=== PATIENT | female | born 1965 | race Caucasian/White ===

== ENCOUNTER 2023-05-14 07:58 | Outpatient (AMB) | payer OTHER, SELFPAY ==
--- NOTE | 2023-05-14 07:59 | A.OFFPC_ITS ---
Vital Signs 05/14/23 08:01 Height 5 ft 4 in Weight 162 lb BMI 27.8 BP 139/71 Blood Pressure Location Rt brachial Position Sitting Respiration 13 Pulse 97 Pulse Source Pulse Oximeter Temp 97.7 F Temp Source Temporal Artery Scan Pulse Oximetry (%) 97 Oxygen Delivery Method Room Air Intake Visit Reasons: Est Care/ HTN, Thyroid ok PER Kaydine Intake Note: Patient is here to establish care. Patient reports she has experienced hypertension. Patient brought medical history paper she wrote down for today's visit- Patient has a history of stroke 01/01/2010. Last colonoscopy was completed on 10/05/2015 at [facility]; on 06/30/2021 patient had 2 polyps removed; 1 was precancerous. Patients last mammogram was completed at [facility] on 11/30/2021. Pail Tester: Pap smear was completed on 05/23/2021; treated for uterine fibroids october of 2014. Mirena IUD inserted 06/06/2015 (for Fibroids). Ent Physician Required: No Accompanied by: Self / Same As Patient Allergies No Known Allergies Allergy (Verified 05/14/23 08:30) Medication List - Last Reconciled 05/14/23 by Kenyatta Branch, SKATING RINK MANAGER- aspirin 81 mg PO DAILY atorvastatin 80 mg PO DAILY calcium carbonate (Tums) 200 mg PO DAILY fluticasone propionate 50 mcg/actuation 1 spray intranasal DAILY levonorgestrel (Mirena) intrauterine levothyroxine 125 mcg PO DAILY lisinopril 10 mg PO DAILY loratadine (Claritin) 10 mg PO DAILY melatonin 3 mg PO BEDTIME PRN multivitamin 1 tab PO DAILY Tobacco use date assessed: 05/14/23 Dental Screening Dental Screen Date: 05/14/23 Did you have a dental visit in the last 12 months?: Yes Did you have a dental problem in the last 6 months where you did not have access to dental care?: No Was dental information given to patient?: Patient has dentist HPI HPI Comments History of Present Illness Details 58 y/o F with HTN, hypothyroid, uterine fibroids, CVA (2009), LELA, perimenopause Surgical hx: brain surgery 2009 Health Maintenance: colonoscopy 06/30/2021 + polyps repeat 5 years Mammo 11/30/22 [facility] Pap 06/02/21 [facility] DEXA Vaccines: UTD on flu, COVID, Shingles, Tdap today Specialists: G[employer] SET UP OPERATOR Optho *[facility] Dr Miller 90 days supply No medical records Coming Dr Kamaljit Rivas [facility] - retired 01/2023. [facility] HTN - on lisinopril, taking as directed. HLD - reports compliance w/ statin. Hypothyroid - tolerant and compliant with levothyroxine. CVA - in 2009. Not active w/ Neuro at this time. Reports poor short term memory. Unsure if this was there before. Has periods of fatigue and low energy. Mood - lots of anxiety. Newly after 30 years. This occurred 1 year ago. In counseling in the past. Declines current referral. No meds. Labs from today show normal electrolytes, normal renal function, normal blood sugar, normal LFTs, normal TSH PFSH Medical History (Updated 05/14/23 @ 15:30 by Kenyatta Branch, [facility]) Memory loss High cholesterol Fibroids Stroke Surgical History (Updated 05/14/23 @ 08:25 by Cyndie Correa [facility]) History of brain surgery Social History (Updated 05/14/23 @ 08:21 by Cyndie Correa [facility]) Household Members: None Housing: Condominium Are you a primary critical care technician to a significant other at home: No Do you presently have visiting nurse or other home services: No Alcohol intake: current Alcohol intake frequency: a few times a week Alcohol type: wine Patient Tobacco Use Status: Never used Tobacco e-Cigarette/Vaping Use: Never Used service: No Current occupational status: employed Current occupation: [employer] Sexual orientation: Unable to collect Gender identity: Unable to collect Cognitive needs: Yes (memory sometimes) Hearing needs: No Vision needs: No Questionnaire PHQ-9 Over the last 2 weeks, how often have you been bothered by any of the following problems? 1. Little interest or pleasure in doing things: not at all 2. Feeling down, depressed, or hopeless: not at all 3. Trouble falling or staying asleep, or sleeping too much: not at all 4. Feeling tired or having little energy: several days 5. Poor appetite or overeating: not at all 6. Feeling bad about yourself - or that you are a failure or have let yourself or your family down: not at all 7. Trouble concentrating on things, such as reading the newspaper or watching television: not at all 8. Moving or speaking so slowly that other people could have noticed. Or the opposite - being so fidgety or restless that you have been moving around a lot more than usual: not at all 9. Thoughts that you would be better off or of hurting yourself in some way: not at all Total score: 1 Depression Screening Interpretation: Negative Depression Screening Done: Yes 78063 - PHQ-9 Billing: Yes Source: Developed by Drs. Emmanuel Estrada, Chyna Mendoza, Ramiro Zuluaga and colleagues, with an educational kerry from [employer]. Thrive Questionnaire Date Thrive assessed: 05/14/23 I am a: Patient What is your living situation today?: I have a steady place to live Within the past 12 months, did the food you bought not last and you didn't have the money to get more?: Never true Within the past 12 months, did you worry whether your food would run out before you got money to buy more?: Never true Do you have trouble paying for medicines?: No Do you have trouble getting transportation to medical appointments?: No Do you have trouble paying your heating and electricity bill?: No Do you have trouble taking care of your child, family member or friend?: No Do you have trouble with day-to-day activities such as bathing, preparing meals, shopping, managing finances, etc.?: No Are you currently unemployed and looking for a job?: No Are you interested in more education?: No Please select the resources that you would like help with: None Currently or been in a relationship where the following occur: no concerns reported THRIVE Score: 0 AUDIT C Alcohol Use Questionnaire (AUDIT-C) 1. How often do you have a drink containing alcohol?: Never 2. How many drinks containing alcohol do you have on a typical day when you are drinking?: 3 or 4 3. How often do you have six or more drinks on one occasion?: Never Total Score: 1 Score Reviewed/Action Taken: Yes LELA-7 AMB Questionnaire LELA-7 Date LELA - 7 assessed: 05/14/23 Feeling nervous, anxious, or on edge: 1 = Several days Not being able to stop or control worryin = Several days Worrying too much about different things: 1 = Several days Trouble relaxin = Not at all Being so restless that it is hard to sit still: 0 = Not at all Becoming easily annoyed or irritable: 0 = Not at all Feeling afraid as if something awful might happen: 0 = Not at all Total LELA-7 score (0-4 normal; 5-9 mild; 10-14 moderate; 15-21 severe): 3 Source: Developed by Drs. Emmanuel Estrada, Chyna Mendoza, Ramiro Zuluaga and colleagues, with an educational kerry from [employer]. LELA-7 Assessment Billing LELA-7 Assessment Tool: LELA-7 Assessment 25408 Review of Systems Const All systems reviewed & are unremarkable except as noted in HPI and below Physical exam (Primary Care) Vital Signs: Last Vital Signs Temp 97.7 F 05/14/23 08:01 Pulse 97 05/14/23 08:01 Resp 13 05/14/23 08:01 BP 139/71 05/14/23 08:01 Pulse Ox 97 05/14/23 08:01 Oxygen Delivery Method Room Air 05/14/23 08:01 BMI result Body Mass Index 27.8 Tobacco/Smoking Status: Tobacco use Status Tobacco use date assessed 05/14/23 05/14/23 08:19 Patient Tobacco Use Status Never used Tobacco 05/14/23 08:21 e-Cigarette/Vaping Use Never Used 05/14/23 08:21 PHQ-9: PHQ-9 Score PHQ-9: Total score 1 05/14/23 11:21 Depression Screening Interpretation: Negative Thrive Assessment: Date of Thrive Assessment Date Thrive assessed 05/14/23 05/14/23 08:29 Currently or been in a relationship where the following occur: no concerns reported Const Other: awake alert scleras nonicteric bilat + carotid bruit bilat 2/6 systolic murmur, LSB, RRR Abd soft, nontender, no hepatomegaly LS CTAB no edema BLE, + PP Immunizations Boostrix Tdap 2.5 Lf unit-8 mcg-5 Lf/0.5 mL intramuscular syringe Performing Provider: ALYSON Padilla Performing Location: [facility] Administered by: Marii Barnes CMA on 05/14/23 09:19 Dose Route Admin Location Dispensed Lot Number Expiration Date [employer] Agent 0.5 mL IM Right Deltoid 0.5 mL [id number] 06/22/25 67720-328-13 [facility] VIS Given Date VIS Provided VIS Publication Date 05/14/23 Single Vaccine 20 Eligibility Eligibility Date Funding Source Not [facility] Eligible 05/14/23 Private Assessment and Plan Assessment & Plan (1) Hypothyroid: Comment: TSH 0.88 Plan: Cont levothyroxine 125 mcg QD. Code(s): E03.9 - Hypothyroidism, unspecified Qualifiers: Hypothyroidism type: acquired Qualified Code(s): E03.9 - Hypothyroidism, unspecified (2) Hypertension: Comment: on lisinopril 10 mg QD , BP at goal, cont. Code(s): I10 - Essential (primary) hypertension Qualifiers: Hypertension type: primary hypertension Qualified Code(s): I10 - Essential (primary) hypertension (3) Hyperlipidemia: Comment: on Atorvastatin 80 mg QD, cont. Code(s): E78.5 - Hyperlipidemia, unspecified Qualifiers: Hyperlipidemia type: mixed hyperlipidemia Qualified Code(s): E78.2 - Mixed hyperlipidemia (4) Hypersomnolence: Comment: will check sleep study Code(s): G47.10 - Hypersomnia, unspecified (5) Stroke: Comment: reports treated at [facility] in 2009. Records requested. on statin & ACEI. No deficits Code(s): I63.9 - Cerebral infarction, unspecified Qualifiers: CVA mechanism: unspecified Qualified Code(s): I63.9 - Cerebral infarction, unspecified (6) Mitral valve prolapse: Comment: Echo ordered. Code(s): I34.1 - Nonrheumatic mitral (valve) prolapse (7) Carotid artery bruit: Comment: Carotid US ordered. On Statin Code(s): R09.89 - Other specified symptoms and signs involving the circulatory and respiratory systems Qualifiers: Laterality: bilateral Qualified Code(s): R09.89 - Other specified symptoms and signs involving the circulatory and respiratory systems (8) LELA (generalized anxiety disorder): Comment: not on meds currently; never been on meds; in counseling in the past, not effective. feels she is managing fine at this time. Code(s): F41.1 - Generalized anxiety disorder Plan This note is constructed using voice recognition software. While every effort has been made to ensure accuracy in industrial hygiene technician, still errors may have been included Sometimes, these errors may affect the content or meaning of the given sentence . Total time spent caring for the patient today was 60 minutes. This includes time spent before the visit reviewing the chart, time spent during the visit, and time spent after the visit on documentation Orders: Orders Microalbumin, Random (w Creat) Today E03.9 - Hypothyroidism, unspecified, E78.5 - Hyperlipidemia, unspecified, I10 - Essential (primary) hypertension Comprehensive Met. Panel Today E03.9 - Hypothyroidism, unspecified, E78.5 - Hyperlipidemia, unspecified, I10 - Essential (primary) hypertension Vitamin D 1,25 dihydroxy Today E03.9 - Hypothyroidism, unspecified, E78.5 - Hyperlipidemia, unspecified, I10 - Essential (primary) hypertension LDL Cholesterol Direct Today E03.9 - Hypothyroidism, unspecified, E78.5 - Hyperlipidemia, unspecified, I10 - Essential (primary) hypertension TSH reflex Free T4 Today E03.9 - Hypothyroidism, unspecified, E78.5 - Hyperlipidemia, unspecified, I10 - Essential (primary) hypertension RT home sleep study Today G47.10 - Hypersomnia, unspecified, I63.9 - Cerebral infarction, unspecified CA echo transthoracic complete Today I34.1 - Nonrheumatic mitral (valve) prolapse US carotid duplex BI Today E78.5 - Hyperlipidemia, unspecified, I63.9 - Cerebral infarction, unspecified, R09.89 - Other specified symptoms and signs involving the circulatory and respiratory systems TDaP Immunization Today Z23 - Encounter for immunization Medications: New lisinopril 10 mg PO DAILY 90 tabs 1RF atorvastatin 80 mg PO DAILY 90 tabs 1RF Patient Instructions: [email or web address].[email or web address] RTO in 6 weeks to review echo, sleep study and carotid US, sooner PRN Coding Level of Care Code New Pt Level 5 (03342) Diagnoses Acquired hypothyroidism E03.9 Hypothyroidism type: acquired Primary hypertension I10 Hypertension type: primary hypertension Mixed hyperlipidemia E78.2 Hyperlipidemia type: mixed hyperlipidemia Hypersomnolence G47.10 Cerebrovascular accident (CVA), unspecified mechanism I63.9 CVA mechanism: unspecified Mitral valve prolapse I34.1 Bilateral carotid bruits R09.89 Laterality: bilateral LELA (generalized anxiety disorder) F41.1 Additional Codes LELA-7 Assessment Billing - LELA-7 Assessment Tool: LELA-7 Assessment 04765 ([id number])
[2023-05-14 08:01] VITALS: BP 139/71; PULSE 97; RESP 13; TEMP 36.5; O2SAT 97; BMI 27.8
== END 2023-05-14 09:17 | disposition home or self-care (01) ==
PROVIDERS: PCP Nurse Practitioner Family; Visit Provider Nurse Practitioner Family
DX: E03.9 Hypothyroidism, unspecified (principal); I10 Essential (primary) hypertension; E78.2 Mixed hyperlipidemia; Z23 Encounter for immunization; G47.10 Hypersomnia, unspecified; Z86.73 Personal history of transient ischemic attack (TIA), and cerebral infarction without residual deficits; I34.1 Nonrheumatic mitral (valve) prolapse; R09.89 Other specified symptoms and signs involving the circulatory and respiratory systems; F41.1 Generalized anxiety disorder
CPT/HCPCS: 90471; 90715; 99205

== ENCOUNTER 2023-05-14 09:18 | Outpatient (REF) | payer OTHER, SELFPAY ==
[2023-05-14 13:19] LABS: Anion Gap 13 (12-20); TSH reflex Free T4 0.88 uIU/mL (0.32-4.0)
[2023-05-14 13:24] LABS: Alanine Aminotransferase 21 U/L (0-31); Albumin Level 4.8 g/dL (3.5-5.0); Alkaline Phosphatase 72 U/L (39-117); Aspartate Amino Transferase 19 U/L (5-31); Bilirubin Total 0.5 mg/dL (0.0-1.0); Blood Urea Nitrogen 21 mg/dL (9-16); Calcium 9.8 mg/dL (8.4-10.2); Carbon Dioxide 25 mmol/L (22-29); Chloride 106 mmol/L (96-108); Estimated Glomerular Filt Rate > 60; Glucose Random 115 mg/dL (60-115); Potassium 4.3 mmol/L (3.3-5.1); Sodium 140 mmol/L (135-145); Total Protein 7.6 g/dL (6.5-8.0)
[2023-05-30 10:51] LABS: LDL Cholesterol Direct 126
[2023-05-30 10:52] LABS: Vit D (1,25-Dihydroxy) Total 37; Vitamin D (1,25 OH) D2 <8
[2023-05-30 10:53] LABS: VITAMIN D (1,25 OH) D3 37
== END 2023-05-14 09:19 | disposition home or self-care (01) ==
LOC: HO.WFDLDS 09:18
PROVIDERS: Visit Provider Nurse Practitioner Family
DX: E03.9 Hypothyroidism, unspecified (principal); I10 Essential (primary) hypertension; E78.5 Hyperlipidemia, unspecified
CPT/HCPCS: 36415; 80053; 82652; 83721; 84443

== ENCOUNTER 2023-05-17 09:27 | Outpatient (REF) | payer OTHER, SELFPAY ==
[2023-05-17 12:56] LABS: Creatinine Urine 37.13 mg/dL; Microalbumin Urine < 5.0 mg/L
== END 2023-05-17 09:28 | disposition home or self-care (01) ==
LOC: HO.WFDLDS 09:27
PROVIDERS: Visit Provider Nurse Practitioner Family
DX: E03.9 Hypothyroidism, unspecified (principal); I10 Essential (primary) hypertension; E78.5 Hyperlipidemia, unspecified
CPT/HCPCS: 82043; 82570

== ENCOUNTER 2023-05-20 13:47 | Outpatient (REF) | payer OTHER, SELFPAY ==
--- NOTE | ~2023-05-20 | US_ITS ---
EXAMINATION: US EXTRACRANIAL CAROTID DUPLEX, BILATERAL CLINICAL INFORMATION: Stroke COMPARISON: None available. TECHNIQUE: Real-time ultrasound and Doppler techniques (integrating B-mode 2-D vascular images, Doppler spectral analysis and color-flow Doppler imaging) were utilized to interrogate the extracranial carotid arteries, the vertebral arteries and proximal subclavian arteries bilaterally. The degree of stenosis is determined by criteria similar to NASCET. FINDINGS: Right Side: 1. There is mild atherosclerotic plaque seen in the bifurcation/proximal ICA region. 2. The common carotid artery PSV proximally is 153 cm/s and distally 118 cm/s. 3. The proximal internal carotid artery velocities are 88 cm/s systolic and 25.1 cm/s diastolic. 4. The proximal external carotid artery PSV is 164 cm/s. 5. The vertebral artery shows antegrade flow. 6. The subclavian artery waveforms are normal. Left Side: 1. There is mild atherosclerotic plaque seen in the bifurcation/proximal ICA region. 2. The common carotid artery PSV proximally is 146 cm/s and distally 101 cm/s. 3. The proximal internal carotid artery velocities are 90.4 cm/s systolic and 18.9 cm/s diastolic. 4. The proximal external carotid artery PSV is 113 cm/s. 5. The vertebral artery shows antegrade flow. 6. The subclavian artery waveforms are normal. US/US carotid duplex BI IMPRESSION: 1. RIGHT: Minimal, non-hemodynamically significant stenosis of the proximal right internal carotid artery corresponding to a 0-49% stenosis by velocity criteria. 2. LEFT: Minimal, non-hemodynamically significant stenosis of the proximal left internal carotid artery corresponding to a 0-49% stenosis by velocity criteria.
== END 2023-05-20 13:48 | disposition home or self-care (01) ==
LOC: HO.HMGCX 13:47
PROVIDERS: PCP Nurse Practitioner Family; Visit Provider Nurse Practitioner Family
DX: I63.9 Cerebral infarction, unspecified (principal); R09.89 Other specified symptoms and signs involving the circulatory and respiratory systems; E78.5 Hyperlipidemia, unspecified
CPT/HCPCS: 93880

== ENCOUNTER → 2023-06-06 12:45 | Outpatient (REF) | payer OTHER, SELFPAY ==
--- NOTE | 2023-06-06 12:48 | CA_ITS ---
Transthoracic Echocardiogram Patient (Last, First, Middle): Luanne Cheung, Gender: Female Date of : 1965 Age: 58 Procedure Date: 06/06/2023 Procedure Type: Transthoracic Echocardiogram Location: OP Height: 162.56 cm Weight: 70.76 kg BSA: 1.76 m2 Heart Rate: bpm BP: 140 / 90 mmHg Echo Technician: TO Referring MD: Kenyatta Branch [facility] Symptoms: I34.1 - Nonrheumatic mitral (valve) prolapse Study Quality: Fair ECG Rhythm: Sinus Conclusions: - The left ventricular systolic function is normal. The calculated ejection fraction is 66% by biplane method. - No obvious valvular pathology seen on this study. Findings Left Ventricle Normal left ventricular cavity size. There is normal left ventricular wall thickness. The left ventricular systolic function is normal. The calculated ejection fraction is 66% by biplane method. There is no evidence of regional wall motion abnormalities. Diastolic function is normal for age. LV peak GLS -19%. Right Ventricle Normal right ventricular cavity size and systolic function. Atria Both atria are normal in size. Aortic Valve There is a normal trileaflet aortic valve. There is no aortic valve stenosis. There is no aortic valve regurgitation. Mitral Valve The mitral valve appears normal. There is no mitral valve regurgitation. There is no mitral valve stenosis. Pulmonic Valve The pulmonic valve is likely normal. Tricuspid Valve Normal tricuspid valve structure. There is trace tricuspid valve regurgitation. There is no evidence of pulmonary hypertension. Great Vessels The asc aorta is normal in size. Venous The inferior vena cava is normal in size and collapses greater than 50% with inspiration. Pericardium/Pleural There is a trivial pericardial effusion. Prior Study Comparison No prior study available for comparison. Recommendations, Care & Conclusions No obvious valvular pathology seen on this study. Measurements 2D Linear Measurements IVSd: 0.69 0.6-0.9/0.6-1.0 cm LVIDd: 3.87 3.9-5.3/4.2-5.9 cm LVIDd Index: 2.20 2.4-3.2/2.2-3.1 cm/m2 LVIDs: 2.40 2.0-3.6 cm LVPWd: 0.72 0.7-1.1 cm LA Diam: 2.50 2.7-3.8/3.0-4.0 cm LAIDs Index: 1.42 1.5-2.3 cm/m2 LV Mass: 92.81 67-162/88-224 g LV Mass Index: 52.73 43-95/49-115 g/m2 LVOT Diam: 2.00 3.0+(-)1.3 cm 2D Systolic Function EF 4C: 65.30 >55% EF 2C: 66.80 >55% EF BiP: 65.90 >55% Mitral Valve MV Pk E: 0.54 MV PK A: 0.60 MV Decel Time: 260.00 E/A: 0.90 E'Lateral: 11.00 E'Medial: 6.96 E/E' Med: 7.80 E/E' Lat: 4.90 PHT: 76.00 MVA PHT: 2.89 Decel [place]: 2.08 Aortic Valve AoV Pk Gunner: 1.58 AoV Mn Gunner: 1.06 AoV VTI: 0.30 AoV Pk Grad: 10.00 Aov Mn Grad: 5.00 SAMANTHA Cont.VTI: 2.81 LVOT LVOT Pk Gunner: 1.36 LVOT Mn Gunner: 0.87 LVOT VTI: 0.26 LVOT Pk Grad: 7.00 LVOT Mn Grad: 4.00 LVOT Diam: 2.00 LVOT Area: 3.14 Diastolic Function MV Pk E: 0.54 MV Pk A: 0.60 E/A: 0.90 E'Medial: 6.96 E/E' Med: 7.80 E' Laterial: 11.00 E/E' Lat: 4.90 Right Ventricle TAPSE (mm): 26.50 TVS' Gunner: 12.60 Tricuspid Valve TR Pk Gunner: 1.86 TR Pk Grad: 14.00 RA Press: 3.00 RVSP: 17.00 Great Vessels Aorta Sinus of Valsalva: 2.75 2.0-3.5 cm Ao Asc: 3.00 2.1-3.4 cm Ao Arch: 2.40 Updated in Other Vendor System with Status of Final Andrew Nguyen MD electronically signed on 06/07/2023 11:59:13 AM with status of Final
== END ==
LOC: HO.CARD 12:45
PROVIDERS: PCP Nurse Practitioner Family; Visit Provider Nurse Practitioner Family
DX: I34.1 Nonrheumatic mitral (valve) prolapse (principal)
CPT/HCPCS: 93306; 93356

== ENCOUNTER → 2023-06-06 12:48 | Outpatient (BNV) | payer OTHER, SELFPAY | PROVIDERS: PCP Nurse Practitioner Family; Visit Provider Internal Medicine | DX: I34.1 Nonrheumatic mitral (valve) prolapse (principal) | CPT/HCPCS: 93306; 93356 ==

== ENCOUNTER → 2023-06-24 12:51 | Outpatient (REF) | payer OTHER, SELFPAY | LOC: HO.SL 12:51 | PROVIDERS: PCP Nurse Practitioner Family; Visit Provider Nurse Practitioner Family | DX: G47.10 Hypersomnia, unspecified (principal); R06.83 Snoring | CPT/HCPCS: 95806 ==

== ENCOUNTER → 2023-06-24 13:02 | Outpatient (BNV) | payer OTHER, SELFPAY | PROVIDERS: PCP Nurse Practitioner Family; Visit Provider Internal Medicine | DX: R06.83 Snoring (principal) | CPT/HCPCS: 95806 ==

== ENCOUNTER 2023-07-12 11:25 | Outpatient (AMB) | payer OTHER, SELFPAY ==
--- NOTE | 2023-07-12 11:32 | MHC.PC.OV ---
Vital Signs 07/12/23 11:33 Height 5 ft 4 in Weight 159 lb BMI 27.3 BP 126/84 Blood Pressure Location Rt brachial Position Sitting Respiration 14 Pulse 92 Pulse Source Pulse Oximeter Temp 98.4 F Temp Source Oral Pulse Oximetry (%) 99 Oxygen Delivery Method Room Air Intake Visit Reasons: 6 week follow up Intake Note: Six week follow up Allergies No Known Allergies Allergy (Verified 07/12/23 11:58) Medication List - Last Reconciled 07/12/23 by DU Padilla- aspirin 81 mg PO DAILY calcium carbonate (Tums) 200 mg PO DAILY escitalopram oxalate 5 mg PO DAILY fluticasone propionate 50 mcg/actuation 1 spray intranasal DAILY levonorgestrel (Mirena) intrauterine levothyroxine 125 mcg PO DAILY lisinopril 10 mg PO DAILY loratadine (Claritin) 10 mg PO DAILY melatonin 3 mg PO BEDTIME PRN multivitamin 1 tab PO DAILY rosuvastatin 40 mg PO DAILY Tobacco use date assessed: 05/14/23 Dental Screening Dental Screen Date: 05/14/23 HPI HPI Comments History of Present Illness Details 58 y/o F with HTN, hypothyroid, uterine fibroids, CVA (2009), LELA, perimenopause, HLD Surgical hx: brain surgery 2009 Family hx: youngest brother with Polycystic kidney disease Health Maintenance: colonoscopy 06/30/2021 + polyps repeat 5 years Mammo 11/30/22 [facility] Pap 06/02/21 [facility] DEXA Vaccines: UTD on flu, COVID, Shingles, Tdap 04/2023 Specialists: [facility] Here today for chronic disease management and follow up. The information below was reviewed with her today. Labs 05/14/2023 show normal lytes, BUN 21, creatinine 0.82, EGFR greater than 60, random glucose 115, normal LFTs, LDL 126, vitamin-D 37, TSH within normal limits, urine microalbumin creatinine ratio normal 05/20/2023 US/US carotid duplex BI IMPRESSION: 1. RIGHT: Minimal, non-hemodynamically significant stenosis of the proximal right internal carotid artery corresponding to a 0-49% stenosis by velocity criteria. 2. LEFT: Minimal, non-hemodynamically significant stenosis of the proximal left internal carotid artery corresponding to a 0-49% stenosis by velocity criteria. Echo 06/07/23 trace tricuspid valve regurgitation. The left ventricular systolic function is normal. The calculated ejection fraction is 66% by biplane method. - No obvious valvular pathology seen on this study. Sleep study 06/27/2023 negative for sleep apnea as total sleep time AHI 4.2, however during sleep and supine position AHI 7.3, snoring 39% of the sleep time, lowest O2 sat 83%, but O2 sat below 88% for only 1 minute which is not significant. The recommendation is for weight reduction position therapy Her LDL goal will be less than 70. She is currently maintained on atorvastatin 80 mg daily. As she has not at goal, we will discontinue the atorvastatin and start her on rosuvastatin 40 mg daily. We will repeat labs in about 6 weeks. No further follow up needed for the echocardiogram results or the ultrasound of the carotid artery results. In regards to the sleep study this was done to evaluate any risk related to her heart disease and stroke that she had in 2009. The sleep study is negative for obstructive sleep apnea. Discuss the findings and offered referral to sleep Medicine if interested, No interest in sleep med referral at this time. Will try to remain off back while sleeping. In regards to anxiety, she was not ready to start any medications at the last visit. However today she is ready to start medication. Has not been on medication in the past. Continues to have a good support system. We will start on escitalopram 5 mg p.o. daily. Return to office in 6 weeks to follow up on effects. [facility] Medical History (Updated 07/12/23 @ 12:20 by Kenyatta Branch [facility]) Hypersomnolence Memory loss High cholesterol Fibroids Stroke Surgical History (Updated 05/14/23 @ 08:25 by Cyndie Correa CMA) History of brain surgery Social History (Updated 05/14/23 @ 08:21 by Cyndie Correa CMA) Household Members: None Housing: Condominium Are you a primary transitional care nurse to a significant other at home: No Do you presently have visiting nurse or other home services: No 75 years or older and lives alone: No Alcohol intake: current Alcohol intake frequency: a few times a week Alcohol type: wine Patient Tobacco Use Status: Never used Tobacco e-Cigarette/Vaping Use: Never Used service: No Current occupational status: employed Current occupation: [employer] Sexual orientation: Unable to collect Gender identity: Unable to collect Cognitive needs: Yes (memory sometimes) Hearing needs: No Vision needs: No Questionnaire Thrive Questionnaire Date Thrive assessed: 05/14/23 LELA-7 AMB Questionnaire LELA-7 Date LELA - 7 assessed: 05/14/23 Source: Developed by Drs. Emmanuel Estrada, Chyna Mendoza, Ramiro Zuluaga and colleagues, with an educational kerry from [employer]. Review of Systems Const All systems reviewed & are unremarkable except as noted in HPI and below Physical exam (Primary Care) Vital Signs: Last Vital Signs Temp 98.4 F 07/12/23 11:33 Pulse 92 07/12/23 11:33 Resp 14 07/12/23 11:33 BP 126/84 07/12/23 11:33 Pulse Ox 99 07/12/23 11:33 Oxygen Delivery Method Room Air 07/12/23 11:33 BMI result Body Mass Index 27.3 Tobacco/Smoking Status: Tobacco use Status Tobacco use date assessed 05/14/23 07/12/23 11:34 Patient Tobacco Use Status Never used Tobacco 07/12/23 11:34 e-Cigarette/Vaping Use Never Used 07/12/23 11:34 Thrive Assessment: Date of Thrive Assessment Date Thrive assessed 05/14/23 07/12/23 11:34 Const Other: awake alert scleras nonicteric bilat + carotid bruit bilat 2/6 systolic murmur, LSB, RRR Abd soft, nontender, no hepatomegaly LS CTAB no edema BLE, + PP Assessment and Plan Assessment & Plan (1) Hypothyroid: Comment: TSH 0.88 Plan: Cont levothyroxine 125 mcg QD. Code(s): E03.9 - Hypothyroidism, unspecified Qualifiers: Hypothyroidism type: acquired Qualified Code(s): E03.9 - Hypothyroidism, unspecified (2) Hypertension: Comment: on lisinopril 10 mg QD , BP at goal, cont. Code(s): I10 - Essential (primary) hypertension Qualifiers: Hypertension type: primary hypertension Qualified Code(s): I10 - Essential (primary) hypertension (3) Hyperlipidemia: Comment: Her LDL goal will be less than 70. She is currently maintained on atorvastatin 80 mg daily. As she has not at goal, we will discontinue the atorvastatin and start her on rosuvastatin 40 mg daily. We will repeat labs in about 6 weeks. Code(s): E78.5 - Hyperlipidemia, unspecified Qualifiers: Hyperlipidemia type: mixed hyperlipidemia Qualified Code(s): E78.2 - Mixed hyperlipidemia (4) Tricuspid valve regurgitation: Comment: Trace, noted on echocardiogram 06/08/2023. No further imaging needed. Code(s): I07.1 - Rheumatic tricuspid insufficiency Qualifiers: Cardiac valve disease etiology: nonrheumatic Qualified Code(s): I36.1 - Nonrheumatic tricuspid (valve) insufficiency (5) LELA (generalized anxiety disorder): Comment: In regards to anxiety, she was not ready to start any medications at the last visit. However today she is ready to start medication. Has not been on medication in the past. Continues to have a good support system. We will start on escitalopram 5 mg p.o. daily. Return to office in 6 weeks to follow up on effects. Code(s): F41.1 - Generalized anxiety disorder (6) Carotid artery bruit: Comment: 05/2023 IMPRESSION: 1. RIGHT: Minimal, non-hemodynamically significant stenosis of the proximal right internal carotid artery corresponding to a 0-49% stenosis by velocity criteria. 2. LEFT: Minimal, non-hemodynamically significant stenosis of the proximal left internal carotid artery corresponding to a 0-49% stenosis by velocity criteria. Optimize medical management of chronic diseases. On a statin. On an NICOLE inhibitor. On baby aspirin. Code(s): R09.89 - Other specified symptoms and signs involving the circulatory and respiratory systems Qualifiers: Laterality: bilateral Qualified Code(s): R09.89 - Other specified symptoms and signs involving the circulatory and respiratory systems Plan: This note is constructed using voice recognition software. While every effort has been made to ensure accuracy in meat passer, still errors may have been included Sometimes, these errors may affect the content or meaning of the given sentence . Total time spent caring for the patient today was 45 minutes. This includes time spent before the visit reviewing the chart, time spent during the visit, and time spent after the visit on documentation Orders: Orders Comprehensive [employer]. Panel Fast 08/12/23 E03.9 - Hypothyroidism, unspecified, E78.2 - Mixed hyperlipidemia, I10 - Essential (primary) hypertension TSH reflex Free T4 08/12/23 E03.9 - Hypothyroidism, unspecified, E78.2 - Mixed hyperlipidemia, I10 - Essential (primary) hypertension Lipid Panel 08/12/23 E03.9 - Hypothyroidism, unspecified, E78.2 - Mixed hyperlipidemia, I10 - Essential (primary) hypertension Medications: New rosuvastatin 40 mg PO DAILY 90 tabs 1RF escitalopram oxalate 5 mg PO DAILY 30 tabs 1RF Discontinued atorvastatin Discontinued Reason: Doctor's Order 80 mg PO DAILY 90 tabs 1RF Patient Instructions: Return to office in 6 weeks. Please update your labs about a week before returning to this visit. We will follow up on the start of your escitalopram. Please return to the office sooner should you need anything. Coding Level of Care Code Est Pt Level 5 (63501) Diagnoses Acquired hypothyroidism E03.9 Hypothyroidism type: acquired Primary hypertension I10 Hypertension type: primary hypertension Mixed hyperlipidemia E78.2 Hyperlipidemia type: mixed hyperlipidemia Nonrheumatic tricuspid valve regurgitation I36.1 Cardiac valve disease etiology: nonrheumatic LELA (generalized anxiety disorder) F41.1 Bilateral carotid bruits R09.89 Laterality: bilateral
[2023-07-12 11:33] VITALS: BP 126/84; PULSE 92; RESP 14; TEMP 36.9; O2SAT 99; BMI 27.3
== END 2023-07-12 12:20 | disposition home or self-care (01) ==
PROVIDERS: PCP Nurse Practitioner Family; Visit Provider Nurse Practitioner Family
DX: E03.9 Hypothyroidism, unspecified (principal); I10 Essential (primary) hypertension; E78.2 Mixed hyperlipidemia; I36.1 Nonrheumatic tricuspid (valve) insufficiency; F41.1 Generalized anxiety disorder; R09.89 Other specified symptoms and signs involving the circulatory and respiratory systems
CPT/HCPCS: 99215

== ENCOUNTER 2023-08-30 08:27 | Outpatient (AMB) | payer OTHER, SELFPAY ==
--- NOTE | 2023-08-30 08:34 | MHC.PC.OV ---
Vital Signs 08/30/23 08:37 Height 5 ft 4 in Weight 161 lb 2 oz BMI 27.7 BP 110/78 Blood Pressure Location Rt brachial Position Sitting Pulse 70 Pulse Source Pulse Oximeter Pulse Oximetry (%) 99 Oxygen Delivery Method Room Air Intake Visit Reasons: 6 weeks w me FU labs and start lexapro Intake Note: Follow up Allergies No Known Allergies Allergy (Verified 08/30/23 09:01) Medication List - Last Reconciled 08/30/23 by KAIN PadillaP- aspirin 81 mg PO DAILY calcium carbonate (Tums) 200 mg PO DAILY escitalopram oxalate 5 mg PO DAILY fluticasone propionate 50 mcg/actuation 1 spray intranasal DAILY levonorgestrel (Mirena) intrauterine levothyroxine 125 mcg PO DAILY lisinopril 10 mg PO DAILY loratadine (Claritin) 10 mg PO DAILY melatonin 3 mg PO BEDTIME PRN multivitamin 1 tab PO DAILY rosuvastatin 40 mg PO DAILY Tobacco use date assessed: 05/14/23 Dental Screening Dental Screen Date: 05/14/23 HPI HPI Comments History of Present Illness Details Here today for 6 week follow up for generalized anxiety and hyperlipidemia. Since starting the escitalopram she admits that she feels a lot calmer. Taking at bedtime but wakes in the morning feeling groggy. Otherwise does not know any side effects. She is tried to move this earlier in the evening to see if this is helps the grogginess, only started this a few days ago so has not noticed any difference. Grinding her teeth at night. Does not have any TMJ pain, tooth pain or headaches. Tolerating compliant of the rosuvastatin 40 mg which was added to lower her LDL less than 70. She is fasting today and we will get her repeat labs done. Weight is stable awake alert scleras nonicteric bilat TMJ WNL bilat 2/6 systolic murmur, LSB, RRR LS CTAB Mood and affect appropriate Labs from today show normal electrolytes, normal renal function, fasting glucose 105, normal LFTs, total cholesterol 167, LDL 105, HDL 47, triglycerides 78, TSH 0.22 Plan At this time continue escitalopram 5 mg p.o. daily. Tried taking around noon time to see if this remedies the grogginess your feeling upon waking. If not we may need to consider change in the medication that you are on. A refill was sent today of the same dose. Follow up with dentist for tooth grinding, at home treatments such as mouth guard provided today. TSH low, dc levothyroxine 125mcg, start 100mcg QD, repeat labs in 6 weeks, ordered today LDL remains > 100 however improved. Cont rosuvastatin at same dose for now given the abnormal tsh, repeat labs in 6 weeks. Labs... LDL... ? cont same statin dose? RTO in September as scheduled, sooner prn. [facility] Medical History (Updated 09/02/23 @ 08:08 by Kenyatta Branch, [facility]) Hypersomnolence Memory loss High cholesterol Fibroids Stroke Surgical History (Updated 05/14/23 @ 08:25 by Cyndie Correa [facility]) History of brain surgery Social History (Updated 05/14/23 @ 08:21 by Cyndie Correa [facility]) Household Members: None Housing: Condominium Are you a primary hiv/aids care nurse to a significant other at home: No Do you presently have visiting nurse or other home services: No Alcohol intake: current Alcohol intake frequency: a few times a week Alcohol type: wine Patient Tobacco Use Status: Never used Tobacco e-Cigarette/Vaping Use: Never Used service: No Current occupational status: employed Current occupation: [employer] Sexual orientation: Unable to collect Gender identity: Unable to collect Cognitive needs: Yes (memory sometimes) Hearing needs: No Vision needs: No Questionnaire PHQ-9 Over the last 2 weeks, how often have you been bothered by any of the following problems? 1. Little interest or pleasure in doing things: not at all 2. Feeling down, depressed, or hopeless: not at all 3. Trouble falling or staying asleep, or sleeping too much: not at all 4. Feeling tired or having little energy: nearly every day 5. Poor appetite or overeating: not at all 6. Feeling bad about yourself - or that you are a failure or have let yourself or your family down: not at all 7. Trouble concentrating on things, such as reading the newspaper or watching television: several days 8. Moving or speaking so slowly that other people could have noticed. Or the opposite - being so fidgety or restless that you have been moving around a lot more than usual: not at all 9. Thoughts that you would be better off or of hurting yourself in some way: not at all Total score: 4 Depression Screening Interpretation: Positive Depression Screening Done: Yes Source: Developed by Drs. Emmanuel Estrada, Chyna Mendoza, Ramiro Zuluaga and colleagues, with an educational kerry from [employer]. Thrive Questionnaire Date Thrive assessed: 05/14/23 LELA-7 AMB Questionnaire LELA-7 Date LELA - 7 assessed: 05/14/23 Feeling nervous, anxious, or on edge: 0 = Not at all Not being able to stop or control worryin = Not at all Worrying too much about different things: 0 = Not at all Trouble relaxin = Not at all Being so restless that it is hard to sit still: 0 = Not at all Becoming easily annoyed or irritable: 0 = Not at all Feeling afraid as if something awful might happen: 0 = Not at all Total LELA-7 score (0-4 normal; 5-9 mild; 10-14 moderate; 15-21 severe): 0 Source: Developed by Drs. Emmanuel Estrada, Chyna Mendoza, Ramiro Zuluaga and colleagues, with an educational kerry from [employer]. LELA-7 Assessment Billing LELA-7 Assessment Tool: LELA-7 Assessment 77360 Physical exam (Primary Care) Vital Signs: Last Vital Signs Pulse 70 08/30/23 08:37 BP 110/78 08/30/23 08:37 Pulse Ox 99 08/30/23 08:37 Oxygen Delivery Method Room Air 08/30/23 08:37 BMI result Body Mass Index 27.7 Tobacco/Smoking Status: Tobacco use Status Tobacco use date assessed 05/14/23 08/30/23 08:36 Patient Tobacco Use Status Never used Tobacco 08/30/23 08:36 e-Cigarette/Vaping Use Never Used 08/30/23 08:36 PHQ-9: PHQ-9 Score PHQ-9: Total score 4 08/30/23 13:33 Depression Screening Interpretation: Positive Thrive Assessment: Date of Thrive Assessment Date Thrive assessed 05/14/23 08/30/23 08:36 Assessment and Plan Assessment & Plan (1) LELA (generalized anxiety disorder): Code(s): F41.1 - Generalized anxiety disorder (2) Hyperlipidemia: Comment: Her LDL goal will be less than 70. Code(s): E78.5 - Hyperlipidemia, unspecified Qualifiers: Hyperlipidemia type: mixed hyperlipidemia Qualified Code(s): E78.2 - Mixed hyperlipidemia (3) Hypothyroid: Code(s): E03.9 - Hypothyroidism, unspecified Qualifiers: Hypothyroidism type: acquired Qualified Code(s): E03.9 - Hypothyroidism, unspecified Plan This note is constructed using voice recognition software. While every effort has been made to ensure accuracy in planning rn, still errors may have been included Sometimes, these errors may affect the content or meaning of the given sentence . Total time spent caring for the patient today was 35 minutes. This includes time spent before the visit reviewing the chart, time spent during the visit, and time spent after the visit on documentation Medications: Refilled escitalopram oxalate 5 mg PO DAILY 30 tabs 1RF Discontinued levothyroxine Discontinued Reason: Doctor's Order 125 mcg PO DAILY 90 tabs 1RF Coding Level of Care Code Est Pt Level 4 (64206) Complex EM visit Add On G2211 Diagnoses LELA (generalized anxiety disorder) F41.1 Mixed hyperlipidemia E78.2 Hyperlipidemia type: mixed hyperlipidemia Acquired hypothyroidism E03.9 Hypothyroidism type: acquired Additional Codes LELA-7 Assessment Billing - LELA-7 Assessment Tool: LELA-7 Assessment [id number] ([id number])
[2023-08-30 08:37] VITALS: BP 110/78; PULSE 70; O2SAT 99; BMI 27.7
== END 2023-08-30 09:10 | disposition home or self-care (01) ==
PROVIDERS: PCP Nurse Practitioner Family; Visit Provider Nurse Practitioner Family
DX: E78.2 Mixed hyperlipidemia (principal); F41.1 Generalized anxiety disorder; E03.9 Hypothyroidism, unspecified
CPT/HCPCS: 99214

== ENCOUNTER 2023-08-30 09:14 | Outpatient (REF) | payer OTHER, SELFPAY ==
[2023-08-30 12:33] LABS: Alanine Aminotransferase 24 U/L (0-31); Albumin Level 4.6 g/dL (3.5-5.0); Alkaline Phosphatase 57 U/L (39-117); Anion Gap 12 (12-20); Aspartate Amino Transferase 19 U/L (5-31); Bilirubin Total 0.5 mg/dL (0.0-1.0); Blood Urea Nitrogen 16 mg/dL (9-16); Calcium 9.6 mg/dL (8.4-10.2); Carbon Dioxide 26 mmol/L (22-29); Chloride 105 mmol/L (96-108); Cholesterol 167 mg/dL (<200); Estimated Glomerular Filt Rate > 60; Glucose Fasting 105 mg/dL (60-99); HDL Cholesterol 47 mg/dL (>40); LDL Cholesterol Calculated 105 mg/dL (<100); Potassium 4.3 mmol/L (3.3-5.1); Sodium 139 mmol/L (135-145); Total Protein 7.3 g/dL (6.5-8.0); Triglycerides 78 mg/dL (<150)
[2023-08-30 12:38] LABS: TSH reflex Free T4 0.22 uIU/mL (0.32-4.0)
[2023-08-30 13:25] LABS: Free T4 (Free Thyroxine) 1.29 ng/dL (0.71-1.85)
== END 2023-08-30 09:15 | disposition home or self-care (01) ==
LOC: HO.WFDLDS 09:14
PROVIDERS: Visit Provider Nurse Practitioner Family
DX: E03.9 Hypothyroidism, unspecified (principal); E78.2 Mixed hyperlipidemia; I10 Essential (primary) hypertension
CPT/HCPCS: 36415; 80053; 80061; 84439; 84443

== ENCOUNTER 2023-11-06 08:40 | Outpatient (REF) | payer OTHER, SELFPAY ==
[2023-11-06 12:28] LABS: Cholesterol 175 mg/dL (<200); HDL Cholesterol 54 mg/dL (>40); LDL Cholesterol Calculated 97 mg/dL (<100); Triglycerides 121 mg/dL (<150)
[2023-11-06 12:48] LABS: TSH reflex Free T4 6.26 uIU/mL (0.32-4.0)
[2023-11-06 13:26] LABS: Free T4 (Free Thyroxine) 0.92 ng/dL (0.71-1.85)
== END 2023-11-06 08:41 | disposition home or self-care (01) ==
LOC: HO.WFDLDS 08:40
PROVIDERS: Visit Provider Nurse Practitioner Family
DX: E78.2 Mixed hyperlipidemia (principal); E03.9 Hypothyroidism, unspecified
CPT/HCPCS: 36415; 80061; 84439; 84443

== ENCOUNTER 2023-11-08 07:56 | Outpatient (AMB) | payer OTHER, SELFPAY ==
--- NOTE | 2023-11-08 08:00 | A.OFFPC_ITS ---
Vital Signs 11/08/23 08:05 Height 5 ft 4 in Weight 169 lb 6 oz BMI 29.1 BP 124/70 Blood Pressure Location Rt brachial Position Sitting Respiration 15 Pulse 92 Pulse Source Pulse Oximeter Pulse Oximetry (%) 98 Oxygen Delivery Method Room Air Intake Visit Reasons: Annual PE Intake Note: annual physical Allergies No Known Allergies Allergy (Verified 11/08/23 08:03) Medication List - Last Reconciled 11/08/23 by Kenyatta Branch, SPECIALIZED DEVELOPER- aspirin 81 mg PO DAILY calcium-vitamin D3-vitamin K 650 mg-12.5 mcg-40 mcg (Viactiv) tabs PO escitalopram oxalate 5 mg PO DAILY fluticasone propionate 50 mcg/actuation 1 spray intranasal DAILY levonorgestrel (Mirena) intrauterine levothyroxine 100 mcg PO DAILY lisinopril 10 mg PO DAILY loratadine (Claritin) 10 mg PO DAILY melatonin 3 mg PO BEDTIME PRN multivitamin 1 tab PO DAILY rosuvastatin 40 mg PO DAILY Tobacco use date assessed: 05/14/23 Dental Screening Dental Screen Date: 11/08/23 Did you have a dental visit in the last 12 months?: Yes Did you have a dental problem in the last 6 months where you did not have access to dental care?: No Was dental information given to patient?: Patient has dentist HPI HPI Comments History of Present Illness Details 58 y/o F with HTN, hypothyroid, uterine fibroids, CVA (2009), LELA, perimenopause Surgical hx: brain surgery 2009 Family hx: Mom kidney disease, Dad etoh abuse, smoker. Sisters & brothers all with anxiety, Sister with breast ca, non-genetic Health Maintenance: colonoscopy 06/30/2021 + polyps repeat 5 years Mammo 11/30/22 [facility] Pap 06/02/21 [facility] DEXA cont to have periods... 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 RIGHT: Minimal, non-hemodynamically s ignificant stenosis of the proximal right internal carotid artery corresponding to a 0-49% stenosis by velocity criteria. 2. LEFT: Minimal, non-hemodynamically si gnificant stenosis of the proximal left internal carotid artery corresponding to a 0-49% stenosis by velocity criteria. Echo 06/07/23 trace tricuspid valve regurgitation. The left ventricular systolic function is normal. The calculated ejection fraction is 66% by biplane method. - No obvious valvular pathology seen on this study. Sleep study 06/27/2023 negative for sleep apnea as total sleep time AHI 4.2, however during sleep and supine position AHI 7.3, snoring 39% of the sleep time, lowest O2 sat 83%, but O2 sat below 88% for only 1 minute which is not significant. The recommendation is for weight reduction position therapy Here today for CPE Labs from November 05 show a TSH of 6.26 and normal free T4, improved lipid profile with an LDL at 97 Eye: Last exam 1.5 years ago, wears glasses Endo: Feels very tired, admits to feeling very sx when thyroid is off. Has added Calcium supplement since. Mild wt gain.. scale here says about 8-9 however has only gained about 5 at home which is likely more accurrate than the reading today Cards: LDL improved even with abnormal TSH. Tolerant of statin. Mood: loves the escitalopram, helps the mood, cont to decline counseling. Walking, doing projects @ home, social, getting out. 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 Plan: STOP calcium supplment. Cont same levothyroxine dose and recheck labs in 6 weeks Check a1c for screening given elevated fasting glucose Continue all medications at the same dose Start ketoconazole for the tinea noted on your left abdomen, continue until clear Return to office in 4 months with fasting labs done 1 week before for routine follow up, sooner as needed This note is constructed using voice recognition software. While every effort has been made to ensure accuracy in grinder carbon plant, still errors may have been included Sometimes, these errors may affect the content or meaning of the given sentence . An additional 10 was spent addressing the problem(s) noted at todays visit. This includes time spent before the visit reviewing the chart, time spent during the visit, and time spent after the visit on documentation [facility] Medical History (Updated 11/08/23 @ 11:01 by Kenyatta Branch, [facility]-) Hypersomnolence Memory loss High cholesterol Fibroids Stroke Surgical History (Updated 10/29/23 @ 13:08 by Caitlin Hall) History of brain surgery Social History (System 10/29/23 @ 13:08 by Caitlin Hall) Household Members: None Housing: Condominium Are you a primary customer care representative to a significant other at home: No Do you presently have visiting nurse or other home services: No 75 years or older and lives alone: No Alcohol intake: current Alcohol intake frequency: a few times a week Alcohol type: wine Patient Tobacco Use Status: Never used Tobacco e-Cigarette/Vaping Use: Never Used service: No Current occupational status: employed Current occupation: [employer] Sexual orientation: Unable to collect Gender identity: Unable to collect Cognitive needs: Yes (memory sometimes) Hearing needs: No Vision needs: No Questionnaire PHQ-9 Over the last 2 weeks, how often have you been bothered by any of the following problems? 1. Little interest or pleasure in doing things: several days 2. Feeling down, depressed, or hopeless: not at all 3. Trouble falling or staying asleep, or sleeping too much: more than half the days 4. Feeling tired or having little energy: more than half the days 5. Poor appetite or overeating: not at all 6. Feeling bad about yourself - or that you are a failure or have let yourself or your family down: not at all 7. Trouble concentrating on things, such as reading the newspaper or watching television: not at all 8. Moving or speaking so slowly that other people could have noticed. Or the opposite - being so fidgety or restless that you have been moving around a lot more than usual: not at all 9. Thoughts that you would be better off or of hurting yourself in some way: not at all Total score: 5 Depression Screening Interpretation: Negative Depression Screening Done: Yes 33236 - PHQ-9 Billing: Yes Source: Developed by Drs. Emmanuel Estrada, Chyna Mendoza, Ramiro Zuluaga and colleagues, with an educational kerry from [employer]. Thrive Questionnaire Date Thrive assessed: 11/08/23 I am a: Patient What is your living situation today?: I have a steady place to live Within the past 12 months, did the food you bought not last and you didn't have the money to get more?: Never true Within the past 12 months, did you worry whether your food would run out before you got money to buy more?: Never true Do you have trouble paying for medicines?: No Do you have trouble getting transportation to medical appointments?: No Do you have trouble paying your heating and electricity bill?: No Do you have trouble taking care of your child, family member or friend?: No Do you have trouble with day-to-day activities such as bathing, preparing meals, shopping, managing finances, etc.?: No Are you currently unemployed and looking for a job?: No Are you interested in more education?: No Please select the resources that you would like help with: None THRIVE Score: 0 AUDIT C Alcohol Use Questionnaire (AUDIT-C) 2. How many drinks containing alcohol do you have on a typical day when you are drinking?: 1 or 2 3. How often do you have six or more drinks on one occasion?: Never Total Score: 0 Score Reviewed/Action Taken: Yes LELA-7 AMB Questionnaire LELA-7 Date LELA - 7 assessed: 11/08/23 Feeling nervous, anxious, or on edge: 0 = Not at all Not being able to stop or control worryin = Not at all Worrying too much about different things: 0 = Not at all Trouble relaxin = Not at all Being so restless that it is hard to sit still: 0 = Not at all Becoming easily annoyed or irritable: 0 = Not at all Feeling afraid as if something awful might happen: 0 = Not at all Total LELA-7 score (0-4 normal; 5-9 mild; 10-14 moderate; 15-21 severe): 0 Source: Developed by Drs. Emmanuel Estrada, Chyna Mendoza, Ramiro Zuluaga and colleagues, with an educational kerry from [employer]. LELA-7 Assessment Billing LELA-7 Assessment Tool: LELA-7 Assessment 66827 Review of Systems Const Details: Constitutional: Denies fever. Skin: Denies rash. Eye: Denies eye pain. ENMT: Denies sore throat and nasal congestion. Respiratory: Denies shortness of breath and cough. Gastrointestinal: Denies nausea, vomiting or abdominal pain. Cardiovascular: Denies chest pain and syncope. Genitourinary: Denies dysuria. Musculoskeletal: Denies back pain and extremity pain. Neurologic: Denies headaches, confusion, and weakness. Psychiatric: Denies suicidal thoughts and substance abuse. Allergy/ Immunologic: Denies impaired immunity. Physical exam (Primary Care) Vital Signs: Last Vital Signs Pulse 92 11/08/23 08:05 Resp 15 11/08/23 08:05 BP 124/70 11/08/23 08:05 Pulse Ox 98 11/08/23 08:05 Oxygen Delivery Method Room Air 11/08/23 08:05 BMI result Body Mass Index 29.1 BMI Assessment/Plan discussion: High BMI High, discussed plan: lifestyle Tobacco/Smoking Status: Tobacco use Status Tobacco use date assessed 05/14/23 11/08/23 08:02 Patient Tobacco Use Status Never used Tobacco 11/08/23 08:02 e-Cigarette/Vaping Use Never Used 11/08/23 08:02 PHQ-9: PHQ-9 Score PHQ-9: Total score 5 11/08/23 11:02 Depression Screening Interpretation: Negative Thrive Assessment: Date of Thrive Assessment Date Thrive assessed 11/08/23 11/08/23 08:12 Advance Care Planning discussion: Exists, not on file Date of discussion: 11/08/23 Forms completed: Health Care Proxy and MOLST Time spent: 1-15 minutes, not on file Const Other: General: Well developed, well nourished, in no acute distress. Appears stated age. Head: Normocephalic, atraumatic. Eyes: Pupils are equal, round and reactive to light and accommodation. Conjunctivae are clear. Vision grossly normal. Ears: TMs clear AU, EACS WNL Nose: Patent, without discharge. Mouth: There are no ulcers or lesions noted. No inflammation, no post nasal drip, no plaques nor exudates. Neck: Supple, no adenopathy or thyromegaly. Lungs: Clear to auscultation bilaterally. No rales, rhonchi or wheeze noted. Good air flow in all marks. Heart: Regular rate and rhythm. No click, rubs or gallops are noted. 2/6 systolic murmur LSB Abdomen: Bowel sounds present in all quadrants. The abdomen is soft, nontender, with no masses or organomegaly noted. No hernias are noted. Musculoskeletal: Joints are nontender, without swelling, redness, or effusions. Range of motion is observed to be normal. Pulses: Peripheral pulses are equal and palpable bilaterally. Extremities: No clubbing, cyanosis nor edema is noted. Neurologic: Gait and station normal. Cranial Nerves 2-12 intact. Motor strength grossly symmetrical and intact. No sensory loss. Balance normal. Skin: No ulcers, or lesions noted. Turgor is good. Skin color is good. Hair and nails are without abnormalities. Tinea corporis below breast on left Psych: Normal eye contact, affect and mood appropriate, and normal interactions. Patient is alert and appropriate to context. Tearful when talking about her progress happy tears Assessment and Plan Assessment & Plan (1) Encounter for general adult medical examination with abnormal findings: Code(s): Z00.01 - Encounter for general adult medical examination with abnormal findings (2) Hypothyroid: Code(s): E03.9 - Hypothyroidism, unspecified Qualifiers: Hypothyroidism type: acquired Qualified Code(s): E03.9 - Hypothyroidism, unspecified (3) Hyperlipidemia: Comment: Her LDL goal will be less than 70. Code(s): E78.5 - Hyperlipidemia, unspecified Qualifiers: Hyperlipidemia type: mixed hyperlipidemia Qualified Code(s): E78.2 - Mixed hyperlipidemia (4) Tricuspid valve regurgitation: Comment: Trace, noted on echocardiogram 06/08/2023. No further imaging needed. Code(s): I07.1 - Rheumatic tricuspid insufficiency Qualifiers: Cardiac valve disease etiology: nonrheumatic Qualified Code(s): I36.1 - Nonrheumatic tricuspid (valve) insufficiency (5) LELA (generalized anxiety disorder): Code(s): F41.1 - Generalized anxiety disorder (6) Carotid artery bruit: Comment: 05/2023 IMPRESSION: 1. RIGHT: Minimal, non-hemodynamically significant stenosis of the proximal right internal carotid artery corresponding to a 0-49% stenosis by velocity criteria. 2. LEFT: Minimal, non-hemodynamically significant stenosis of the proximal left internal carotid artery corresponding to a 0-49% stenosis by velocity criteria. Optimize medical management of chronic diseases. On a statin. On an NICOLE inhibitor. On baby aspirin. Code(s): R09.89 - Other specified symptoms and signs involving the circulatory and respiratory systems Qualifiers: Laterality: bilateral Qualified Code(s): R09.89 - Other specified symptoms and signs involving the circulatory and respiratory systems (7) Hypersomnolence: Comment: Sleep study for 2023- for obstructive sleep apnea. Code(s): G47.10 - Hypersomnia, unspecified (8) Stroke: Comment: reports treated at [facility] in 2009. Records requested. on statin & ACEI. No deficits Code(s): I63.9 - Cerebral infarction, unspecified Qualifiers: CVA mechanism: unspecified Qualified Code(s): I63.9 - Cerebral infarction, unspecified (9) Hypertension: Comment: on lisinopril 10 mg QD , BP at goal, cont. Code(s): I10 - Essential (primary) hypertension Qualifiers: Hypertension type: primary hypertension Qualified Code(s): I10 - Essential (primary) hypertension (10) ACP (advance care planning): Code(s): Z71.89 - Other specified counseling (11) Overweight (BMI 25.0-29.9): Code(s): E66.3 - Overweight (12) Tinea corporis: Code(s): B35.4 - Tinea corporis Orders: Orders Hemoglobin A1c 12/08/23 E03.9 - Hypothyroidism, unspecified, E78.2 - Mixed hyperlipidemia TSH reflex Free T4 12/08/23 E03.9 - Hypothyroidism, unspecified, E78.2 - Mixed hyperlipidemia Medications: New ketoconazole 2% 1 appl topical BID 60 grams 1RF Patient Instructions: Health screenings for women You should visit your health care provider from time to time, even if you are healthy. The purpose of these visits is to: Screen for medical issues Assess your risk for future medical problems Encourage a healthy lifestyle Update vaccinations and other preventive care services Help you get to know your provider in case of an illness Information Even if you feel fine, you should still see your provider for regular checkups. These visits can help you avoid problems in the future. For example, the only way to find out if you have high blood pressure is to have it checked regularly. High blood sugar and high cholesterol levels also may not have any symptoms in the early stages. A simple blood test can check for these conditions. There are specific times when you should see your provider or receive specific health screenings. The [place] Preventive Services Task Force publishes a list of recommended screenings. Below are screening guidelines for women ages 18 to 39. BLOOD PRESSURE SCREENING Your blood pressure should be checked at least once every 3 to 5 years if: Your blood pressure is in the normal range (top number less than 120 mm Hg and bottom number less than 80 mm Hg) You don't have risk factors for high blood pressure Ask your provider if you need your blood pressure checked more often if: The top number is 120 to 129 mm Hg or the bottom number is 70 to 79 mm Hg You have diabetes, heart disease, kidney problems, are overweight, or have certain other health conditions You have a first-degree relative with high blood pressure You are Black You had high blood pressure during a If the top number is 130 mm Hg or greater or the bottom number is 80 mm Hg or greater, this is considered stage 1 hypertension. Schedule an appointment with your provider to learn how you can reduce your blood pressure. Watch for blood pressure screenings in your area. Ask your provider if you can stop in to have your blood pressure checked. BREAST CANCER SCREENING Experts do not agree about the benefits of breast self-exams in finding breast cancer or saving lives. Talk to your provider about what is best for you. A screening mammogram is not recommended for most women under age 40. Your provider may discuss and recommend mammograms, MRI scans, or ultrasounds if you have an increased risk for breast cancer, such as: A mother or sister who had breast cancer at a young age (most often starting screening earlier than the age the close relative was diagnosed) You carry a high-risk genetic marker CERVICAL CANCER SCREENING Cervical cancer screening should start at age 21 years unless your provider advises otherwise. After the first test: Women ages 21 through 29 should have a Pap test every 3 years. Exoprts do not agree on whether HPV testing is recommended for this age group. Women ages 30 through 65 should be screened with either a Pap test every 3 years or the HPV test every 5 years or both tests every 5 years (called cotesting ). Women who have been treated for precancer (cervical dysplasia) should continue to have Pap tests for 20 years after treatment or until age 65, whichever is longer. If you have had your uterus and cervix removed (total hysterectomy), and you have not been diagnosed with cervical cancer or precancer (high grade cervical neoplasia), you do not need cervical cancer screening. CHOLESTEROL SCREENING Cholesterol screening should begin at: Age 45 for women with no known risk factors for coronary heart disease Age 20 for women with known risk factors for coronary heart disease Repeat cholesterol screening should take place: Every 5 years for women with normal cholesterol levels More often if changes occur in lifestyle (including weight gain and diet) More often if you have diabetes, heart disease, kidney problems, or certain other conditions DIABETES SCREENING You should be screened for diabetes starting at age 35 and then repeated every 3 years if you have no risk factors for diabetes. Screening may need to start earlier and be repeated more often if you have other risk factors for diabetes, such as: You have a first degree relative with diabetes. You are overweight or have obesity. You have high blood pressure, prediabetes, or a history of heart disease. Screening for diabetes should be done if you are planning to become and you are overweight and have other risk factors such as high blood pressure. DENTAL EXAM Go to the dentist once or twice every year for an exam and cleaning. Your dentist will evaluate if you need more frequent visits. EYE EXAM Have an eye exam every 5 to 10 years before age 40. If you have vision problems, have an eye exam every 2 years or more often if recommended by your provider. You should have an eye exam that includes an examination of your retina (back of your eye) at least every year if you have diabetes. IMMUNIZATIONS Commonly needed vaccines include: Flu shot: get one every year. COVID-19 vaccine: ask your provider what is best for you. Tetanus-diphtheria and acellular pertussis (Tdap) vaccine: have one at or after age 19 as one of your tetanus-diphtheria vaccines if you did not receive it as an adolescent. Tetanus-diphtheria: have a booster (or Tdap) every 10 years. Varicella vaccine: receive 2 doses if you never had chickenpox or the varicella vaccine. Hepatitis B vaccine: receive 2, 3, or 4 doses, depending on your exact circumstances. Measles, mumps, and rubella (MMR) vaccine: receive 1 to 2 doses if you are not already immune to MMR. Your provider can tell you if you are immune. Ask your provider about the human papillomavirus (HPV) vaccine if: You have not received the HPV vaccine in the past You have not completed the full vaccine series (you should catch up on this shot) Ask your provider if you should receive other immunizations if you have certain health problems that increase your risk for some diseases such as pneumonia. INFECTIOUS DISEASE SCREENING Women who are sexually active should be screened for chlamydia and gonorrhea up until age 25. Women 25 years and older should be screened for chlamydia and gonorrhea if at high risk. Screening for hepatitis C: All adults ages 18 to 79 should get a one-time test for hepatitis C. people should be screened at every . Screening for human immunodeficiency virus (HIV): All people ages 15 to 65 should get a one-time test for HIV. Depending on your lifestyle and medical history, you may also need to be screened for infections such as syphilis and HIV, as well as other infections. PHYSICAL EXAM All adults should visit their provider from time to time, even if they are healthy. The purpose of these visits is to: Screen for disease Assess your risk of future medical problems Encourage a healthy lifestyle Update your vaccinations and other preventive care services Maintain a relationship with a provider in case of an illness Your height, weight, and BMI should be checked at every exam. During your exam, your provider may ask you about: Depression and anxiety Diet and exercise Alcohol and tobacco use Safety issues, such as using seat belts, smoke detectors, and intimate partner violence Your medicines and risk for interactions SKIN SELF-EXAM Your provider may check your skin for signs of skin cancer, especially if you're at high risk, such as if you: Have had skin cancer before Have close relatives with skin cancer Have a weakened immune system OTHER SCREENING Talk with your provider about colon cancer screening if you have a strong family history of colon cancer or polyps, or if you have had inflammatory bowel disease or polyps yourself. Routine bone density screening of women under 40 is not recommended. Coding Level of Care Code Est Pt Level 2 (35107) Est Pt Prev Care 40-64y(28651) Diagnoses Encounter for general adult medical examination with abnormal findings Z00.01 Acquired hypothyroidism E03.9 Hypothyroidism type: acquired Mixed hyperlipidemia E78.2 Hyperlipidemia type: mixed hyperlipidemia Nonrheumatic tricuspid valve regurgitation I36.1 Cardiac valve disease etiology: nonrheumatic LELA (generalized anxiety disorder) F41.1 Bilateral carotid bruits R09.89 Laterality: bilateral Hypersomnolence G47.10 Cerebrovascular accident (CVA), unspecified mechanism I63.9 CVA mechanism: unspecified Primary hypertension I10 Hypertension type: primary hypertension ACP (advance care planning) Z71.89 Overweight (BMI 25.0-29.9) E66.3 Tinea corporis B35.4 Additional Codes LELA-7 Assessment Billing - LELA-7 Assessment Tool: LELA-7 Assessment [id number] ([id number]) Vital Signs *Quality* - Advance Care Planning discussion: Exists, not on file ([id number]) Vital Signs *Quality* - Time spent: 1-15 minutes, not on file ([id number])
[2023-11-08 08:05] VITALS: BP 124/70; PULSE 92; RESP 15; O2SAT 98; BMI 29.1
== END 2023-11-08 08:53 | disposition home or self-care (01) ==
PROVIDERS: PCP Nurse Practitioner Family; Visit Provider Nurse Practitioner Family
DX: Z00.00 Encounter for general adult medical examination without abnormal findings (principal); I36.1 Nonrheumatic tricuspid (valve) insufficiency; B35.4 Tinea corporis; I63.9 Cerebral infarction, unspecified; E03.9 Hypothyroidism, unspecified; E78.2 Mixed hyperlipidemia; F41.1 Generalized anxiety disorder; R09.89 Other specified symptoms and signs involving the circulatory and respiratory systems; G47.10 Hypersomnia, unspecified; I10 Essential (primary) hypertension; Z71.89 Other specified counseling; E66.3 Overweight

== ENCOUNTER → 2023-11-08 07:56 | Outpatient (BNVA) | payer OTHER, SELFPAY | PROVIDERS: PCP Nurse Practitioner Family; Visit Provider Nurse Practitioner Family | DX: Z00.01 Encounter for general adult medical examination with abnormal findings (principal); E03.9 Hypothyroidism, unspecified; E78.2 Mixed hyperlipidemia; I36.1 Nonrheumatic tricuspid (valve) insufficiency; F41.1 Generalized anxiety disorder; I65.23 Occlusion and stenosis of bilateral carotid arteries; G47.10 Hypersomnia, unspecified; I10 Essential (primary) hypertension; B35.4 Tinea corporis; E66.3 Overweight; Z68.29 Body mass index [BMI] 29.0-29.9, adult; Z86.73 Personal history of transient ischemic attack (TIA), and cerebral infarction without residual deficits; Z79.899 Other long term (current) drug therapy; Z71.89 Other specified counseling | CPT/HCPCS: 96127 ==

== ENCOUNTER 2024-01-03 13:08 | Outpatient (REF) | payer OTHER, SELFPAY ==
[2024-01-03 16:15] LABS: Estimated Average Glucose 114 mg/dL; Hemoglobin A1C 138.1807 umol/L; Hemoglobin A1c % 5.6 % (<6.0); Total Hemoglobin (HGBA1C) 3681.5946 umol/L
[2024-01-03 16:37] LABS: TSH reflex Free T4 1.96 uIU/mL (0.32-4.0)
== END 2024-01-03 13:09 | disposition home or self-care (01) ==
LOC: HO.HMGCLDS 13:08
PROVIDERS: PCP Nurse Practitioner Family; Visit Provider Nurse Practitioner Family
DX: E78.2 Mixed hyperlipidemia (principal); E03.9 Hypothyroidism, unspecified; Z13.1 Encounter for screening for diabetes mellitus
CPT/HCPCS: 36415; 83036; 84443

== ENCOUNTER 2024-03-09 08:15 | Outpatient (AMB) | payer OTHER, SELFPAY ==
--- NOTE | 2024-03-09 08:16 | A.OFFPC_ITS ---
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 Allergies No Known Allergies Allergy (Verified 03/09/24 09:06) Medication List - Last Reconciled 03/09/24 by DU Padilla- aspirin 81 mg PO DAILY escitalopram oxalate 5 mg PO DAILY fluticasone propionate 50 mcg/actuation 1 spray intranasal DAILY ketoconazole 2% 1 appl topical BID levonorgestrel (Mirena) intrauterine levothyroxine 100 mcg PO DAILY lisinopril 10 mg PO DAILY loratadine (Claritin) 10 mg PO DAILY melatonin 3 mg PO BEDTIME PRN multivitamin 1 tab PO DAILY rosuvastatin 40 mg PO DAILY Tobacco use date assessed: 05/14/23 Dental Screening Dental Screen Date: 11/08/23 HPI HPI Comments History of Present Illness Details 58 y/o F with HTN, hypothyroid, uterine fibroids, CVA (2009), LELA, perimenopause Social: getting divorce - work in progress Surgical hx: brain surgery 2009 Health Maintenance: colonoscopy 06/30/2021 + polyps repeat 5 years Mammo 11/30/22 [facility], has order needs to schedule Pap 06/02/21 [facility] DEXA has order needs to schedule Vaccines: UTD on flu, COVID, Shingles, Tdap 04/2023 Specialists: [facility] Op[facility]o 04/2023 urine microalb/cr WNL, LDL 126, V it d WNL 05/20/2023 US/US carotid duplex BI IMPRESSION: 1. RIGHT: Minimal, non-hemodynamically s ignificant stenosis of the proximal right internal carotid artery corresponding to a 0-49% stenosis by velocity criteria. 2. LEFT: Minimal, non-hemodynamically si gnificant stenosis of the proximal left internal carotid artery corresponding to a 0-49% stenosis by velocity criteria. Echo 06/07/23 trace tricuspid valve regurgitation. The left ventricular systolic function is normal. The calculated ejection fraction is 66% by biplane method. - No obvious valvular pathology seen on this study. Sleep study 06/27/2023 negative for sleep apnea as total sleep time AHI 4.2, however during sleep and supine position AHI 7.3, snoring 39% of the sleep time, lowest O2 sat 83%, but O2 sat below 88% for only 1 minute which is not significant. The recommendation is for weight reduction position therapy Labs from November 05 show a TSH of 6.26 and normal free T4, improved lipid profile with an LDL at 97 The patient is a 58-year-old female presenting with a routine follow-up for chronic conditions which includes essential hypertension, hypothyroidism, anxiety, and glossodynia. The patient reported feeling a significant improvement in anxiety management, feeling calmer, and sleeping well. She engages in yoga and walks even during winter. The patient also acknowledged stress associated with matters pertaining to her previous divorce, though she is receiving appropriate support. The patient has hypertension which is managed with lisinopril 10 mg, and her hypothyroidism is controlled with levothyroxine 100 mcg. Regarding her medications, she mentioned adherence to her current regimen, including daily aspirin, escitalopram 5 mg, and rosuvastatin 40 mg. Recently, the patient noticed sores on the sides of her tongue with a tingling sensation, db to having consumed something excessively hot. These symptoms resolved initially with additional oral hygiene but recurred recently. She has switched back to her regular toothpaste after a brief change, with no use of additional oral products like lozenges. Additionally, she reported a fall during walking that resulted in bruising on her left hip due to an unnoticed curb, but without hitting her head. The bruises have since resolved. - Nutrition and Sleep: Sleeping well wit h no recent use of melatonin; switched to herbal tea at bedtime. Exam awake alert scleras nonicteric bilat Thyroid nontender, trachea midline faint carotid bruit bilat tongue with denuded area on the ride side, no blisters, pharynx clear 2/6 systolic murmur, LSB, RRR Abd soft, nontender LS CTAB No edema BLE Mood and affect appropriate Discussion Notes During the visit, we discussed maintaining the current medication regimen for managing hypertension, hypothyroidism, and anxiety. I confirmed that the dosages remain appropriate, with refills provided. We addressed her tongue symptoms, with recommendations for potential use of a mouth guard if bruxism is suspected. I offered advice on her safety during walks, suggesting traction aids for enhanced stability on snow. We acknowledged her proactive management of anxiety through yoga and a supportive setup for legal stressors from her prior divorce. Collaboration was agreed concerning upcoming laboratory work and routine imaging to ensure comprehensive management of her health. Plan - Continue current medications including levothyroxine 100 mcg, lisinopril 10 mg, escitalopram 5 mg, daily aspirin, and rosuvastatin 40 mg. - Monitor tongue symptoms, consider util izing a mouth guard for potential nocturnal teeth grinding; follow up if symptoms persist or worsen. Dental appt coming up - mention to dentist - Advise obtaining traction aids for saf e walking on uneven surfaces, particularly during winter months. - Encourage completion of routine mammog mikayla and DEXA scan orders; ensure these are scheduled accordingly. - Plan fasting lab work for lipid profil e and thyroid function prior to the next physical examination. Patient was informed and verbally consented to the use of an ambient scribe for clinic note documentation during this visit. Patient Instructions - Continue all prescribed medications an d ensure timely refills. - Practice good oral hygiene and use a m outh guard if teeth grinding is suspected. - Schedule mammogram and baseline DEXA s cans to ensure timely preventive screening. - Take precautions on walks by consideri ng traction aids to prevent falls. - Return for fasting labs in June to asse ss cholesterol and thyroid function. - Reach out if tongue symptoms persist o r if any new concerns arise. RTO JUNE/JULY WITH LABS 1 WEEK BEFORE FOR ROUTINE CHRONIC CONDITIONS, CPE END OF OCT 2024 Total time spent caring for the patient today was 45 minutes. This includes time spent before the visit reviewing the chart, time spent during the visit, and time spent after the visit on documentation, reviewing laboratory results, diagnostic imaging, medications, performing a medically necessary evaluation, counseling on diagnoses, care coordination, ordering appropriate tests, ordering appropriate medications, review of tests performed by other providers, reporting test results with the patient, communication with other healthcare providers. [facility] Medical History (Updated 11/08/23 @ 11:01 by Kenyatta Branch [facility]) Hypersomnolence Memory loss High cholesterol Fibroids Stroke Surgical History (Updated 10/29/23 @ 13:08 by Caitlin Hall) History of brain surgery Social History (System 10/29/23 @ 13:08 by Caitlin Hall) Household Members: None Housing: Condominium Are you a primary senior care manager to a significant other at home: No Do you presently have visiting nurse or other home services: No 75 years or older and lives alone: No Alcohol intake: current Alcohol intake frequency: a few times a week Alcohol type: wine Patient Tobacco Use Status: Never used Tobacco e-Cigarette/Vaping Use: Never Used service: No Current occupational status: employed Current occupation: [employer] Sexual orientation: Unable to collect Gender identity: Unable to collect Cognitive needs: Yes (memory sometimes) Hearing needs: No Vision needs: No Questionnaire PHQ-9 Over the last 2 weeks, how often have you been bothered by any of the following problems? 1. Little interest or pleasure in doing things: not at all 2. Feeling down, depressed, or hopeless: not at all 3. Trouble falling or staying asleep, or sleeping too much: not at all 4. Feeling tired or having little energy: not at all 5. Poor appetite or overeating: not at all 6. Feeling bad about yourself - or that you are a failure or have let yourself or your family down: not at all 7. Trouble concentrating on things, such as reading the newspaper or watching television: not at all 8. Moving or speaking so slowly that other people could have noticed. Or the op posite - being so fidgety or restless that you have been moving around a lot more than usual: not at all 9. Thoughts that you would be better off or of hurting yourself in some way: not at all Total score: 0 Depression Screening Interpretation: Negative Depression Screening Done: Yes 05068 - PHQ-9 Billing: Yes Source: Developed by Drs. Emmanuel Estrada, Chyna Mednoza, Ramiro Zuluaga and colleagues, with an educational kerry from [employer] Thrive Questionnaire Date Thrive assessed: 03/09/24 I am a: Patient What is your living situation today?: I have a steady place to live Within the past 12 months, did the food you bought not last and you didn't have the money to get more?: Never true Within the past 12 months, did you worry whether your food would run out before you got money to buy more?: Never true Do you have trouble paying for medicines?: No Do you have trouble getting transportation to medical appointments?: No Do you have trouble paying your heating and electricity bill?: No Do you have trouble taking care of your child, family member or friend?: No Do you have trouble with day-to-day activities such as bathing, preparing meals, shopping, managing finances, etc.?: No Are you currently unemployed and looking for a job?: No Are you interested in more education?: No Please select the resources that you would like help with: None Currently or been in a relationship where the following occur: No concerns reported THRIVE Score: 0 AUDIT C Alcohol Use Questionnaire (AUDIT-C) 1. How often do you have a drink containing alcohol?: 2-4 times a month 2. How many drinks containing alcohol do you have on a typical day when you are drinking?: 1 or 2 3. How often do you have six or more drinks on one occasion?: Never Total Score: 2 Score Reviewed/Action Taken: Yes LELA-7 AMB Questionnaire LELA-7 Date LELA - 7 assessed: 03/09/24 Feeling nervous, anxious, or on edge: 1 = Several days Not being able to stop or control worryin = Not at all Worrying too much about different things: 0 = Not at all Trouble relaxin = Not at all Being so restless that it is hard to sit still: 0 = Not at all Becoming easily annoyed or irritable: 0 = Not at all Feeling afraid as if something awful might happen: 0 = Not at all Total LELA-7 score (0-4 normal; 5-9 mild; 10-14 moderate; 15-21 severe): 1 Source: Developed by Drs. Emmanuel Estrada, Chyna Mendoza, Ramiro Zuluaga and colleagues, with an educational kerry from [employer] LELA-7 Assessment Billing LELA-7 Assessment Tool: LELA-7 Assessment 30466 Physical exam (Primary Care) Vital Signs: Last Vital Signs Pulse 93 03/09/24 08:22 Resp 12 03/09/24 08:22 BP 118/70 03/09/24 08:22 Pulse Ox 97 03/09/24 08:22 Oxygen Delivery Method Room Air 03/09/24 08:22 BMI result Body Mass Index 28.9 Tobacco/Smoking Status: Tobacco use Status Tobacco use date assessed 05/14/23 03/09/24 08:19 Patient Tobacco Use Status Never used Tobacco 03/09/24 08:19 e-Cigarette/Vaping Use Never Used 03/09/24 08:19 PHQ-9: PHQ-9 Score PHQ-9: Total score 0 03/09/24 08:19 Depression Screening Interpretation: Negative Thrive Assessment: Date of Thrive Assessment Date Thrive assessed 03/09/24 03/09/24 08:19 Currently or been in a relationship where the following occur: No concerns reported Coding Level of Care Code Est Pt Level 5 (71821) Complex EM visit Add On G2211 Diagnoses LELA (generalized anxiety disorder) F41.1 Mixed hyperlipidemia E78.2 Hyperlipidemia type: mixed hyperlipidemia Primary hypertension I10 Hypertension type: primary hypertension Acquired hypothyroidism E03.9 Hypothyroidism type: acquired Cerebrovascular accident (CVA), unspecified mechanism I63.9 CVA mechanism: unspecified Overweight (BMI 25.0-29.9) E66.3 Nonrheumatic tricuspid valve regurgitation I36.1 Cardiac valve disease etiology: nonrheumatic Tongue ulceration K14.0 Bilateral carotid bruits R09.89 Laterality: bilateral Additional Codes LELA-7 Assessment Billing - LELA-7 Assessment Tool: LELA-7 Assessment 46804 ([id number]) PHQ-9 - 54501 - PHQ-9 Billing: Yes ([id number]) Assessment & Plan Assessment & Plan (1) LELA (generalized anxiety disorder): Code(s): F41.1 - Generalized anxiety disorder Category: Medical (2) Hyperlipidemia: Comment: Her LDL goal will be less than 70. Code(s): E78.5 - Hyperlipidemia, unspecified Category: Medical Qualifiers: Hyperlipidemia type: mixed hyperlipidemia Qualified Code(s): E78.2 - Mixed hyperlipidemia (3) Hypertension: Comment: on lisinopril 10 mg QD , BP at goal, cont. Code(s): I10 - Essential (primary) hypertension Category: Medical Qualifiers: Hypertension type: primary hypertension Qualified Code(s): I10 - Essential (primary) hypertension (4) Hypothyroid: Code(s): E03.9 - Hypothyroidism, unspecified Category: Medical Qualifiers: Hypothyroidism type: acquired Qualified Code(s): E03.9 - Hypothyroidism, unspecified (5) Stroke: Comment: reports treated at [facility] in 2009. Records requested. on statin & ACEI. No deficits Code(s): I63.9 - Cerebral infarction, unspecified Category: Medical Qualifiers: CVA mechanism: unspecified Qualified Code(s): I63.9 - Cerebral infarction, unspecified (6) Overweight (BMI 25.0-29.9): Code(s): E66.3 - Overweight Category: Medical (7) Tricuspid valve regurgitation: Comment: Trace, noted on echocardiogram 06/08/2023. No further imaging needed. Code(s): I07.1 - Rheumatic tricuspid insufficiency Category: Medical Qualifiers: Cardiac valve disease etiology: nonrheumatic Qualified Code(s): I36.1 - Nonrheumatic tricuspid (valve) insufficiency (8) Tongue ulceration: Code(s): K14.0 - Glossitis (9) Carotid artery bruit: Comment: 05/2023 IMPRESSION: 1. RIGHT: Minimal, non-hemodynamically significant stenosis of the proximal right internal carotid artery corresponding to a 0-49% stenosis by velocity criteria. 2. LEFT: Minimal, non-hemodynamically significant stenosis of the proximal left internal carotid artery corresponding to a 0-49% stenosis by velocity criteria. Optimize medical management of chronic diseases. On a statin. On an NICOLE inhibitor. On baby aspirin. Code(s): R09.89 - Other specified symptoms and signs involving the circulatory and respiratory systems Category: Medical Qualifiers: Laterality: bilateral Qualified Code(s): R09.89 - Other specified symptoms and signs involving the circulatory and respiratory systems Plan . Orders: Orders Lipid Panel 06/18/24 E03.9 - Hypothyroidism, unspecified, E78.2 - Mixed hyperlipidemia, I10 - Essential (primary) hypertension, I63.9 - Cerebral infarction, unspecified Comprehensive Helper. Panel Fast 06/18/24 E03.9 - Hypothyroidism, unspecified, E78.2 - Mixed hyperlipidemia, I10 - Essential (primary) hypertension, I63.9 - Cerebral infarction, unspecified TSH reflex Free T4 06/18/24 E03.9 - Hypothyroidism, unspecified, E78.2 - Mixed hyperlipidemia, I10 - Essential (primary) hypertension, I63.9 - Cerebral infarction, unspecified Medications: Refilled escitalopram oxalate 5 mg PO DAILY 90 tabs 1RF levothyroxine 100 mcg PO DAILY 90 tabs 1RF lisinopril 10 mg PO DAILY 90 tabs 1RF rosuvastatin 40 mg PO DAILY 90 tabs 1RF
[2024-03-09 08:22] VITALS: BP 118/70; PULSE 93; RESP 12; O2SAT 97; BMI 28.9
== END 2024-03-09 09:05 | disposition home or self-care (01) ==
PROVIDERS: PCP Nurse Practitioner Family; Visit Provider Nurse Practitioner Family
DX: I10 Essential (primary) hypertension (principal); F41.1 Generalized anxiety disorder; E78.2 Mixed hyperlipidemia; E03.9 Hypothyroidism, unspecified; Z86.73 Personal history of transient ischemic attack (TIA), and cerebral infarction without residual deficits; E66.3 Overweight; I36.1 Nonrheumatic tricuspid (valve) insufficiency; K14.0 Glossitis; R09.89 Other specified symptoms and signs involving the circulatory and respiratory systems

== ENCOUNTER → 2024-03-09 08:15 | Outpatient (BNVA) | payer SELFPAY | PROVIDERS: PCP Nurse Practitioner Family; Visit Provider Nurse Practitioner Family | DX: F41.1 Generalized anxiety disorder (principal); E78.2 Mixed hyperlipidemia; I10 Essential (primary) hypertension; E03.9 Hypothyroidism, unspecified; E66.3 Overweight; Z68.28 Body mass index [BMI] 28.0-28.9, adult; I36.1 Nonrheumatic tricuspid (valve) insufficiency; K14.0 Glossitis; R09.89 Other specified symptoms and signs involving the circulatory and respiratory systems; Z86.73 Personal history of transient ischemic attack (TIA), and cerebral infarction without residual deficits; Z79.82 Long term (current) use of aspirin; Z79.899 Other long term (current) drug therapy | CPT/HCPCS: 96127 ==

== ENCOUNTER 2024-07-20 09:23 | Outpatient (REF) | payer OTHER, SELFPAY ==
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
[2024-07-20 13:50] LABS: Alanine Aminotransferase 57 U/L (0-31); Albumin Level 4.8 g/dL (3.5-5.0); Alkaline Phosphatase 54 U/L (39-117); Anion Gap 12 (12-20); Aspartate Amino Transferase 54 U/L (5-31); Bilirubin Total 0.6 mg/dL (0.0-1.0); Blood Urea Nitrogen 13 mg/dL (9-16); Calcium 9.7 mg/dL (8.4-10.2); Carbon Dioxide 25 mmol/L (22-29); Chloride 108 mmol/L (96-108); Cholesterol 153 mg/dL (<200); Estimated Glomerular Filt Rate > 60; Glucose Fasting 106 mg/dL (60-99); HDL Cholesterol 45 mg/dL (>40); LDL Cholesterol Calculated 88 mg/dL (<100); Potassium 4.9 mmol/L (3.3-5.1); Sodium 140 mmol/L (135-145); Total Protein 7.3 g/dL (6.5-8.0); Triglycerides 104 mg/dL (<150)
[2024-07-20 13:52] LABS: TSH reflex Free T4 8.55 uIU/mL (0.32-4.0)
[2024-07-20 14:38] LABS: Free T4 (Free Thyroxine) 1.02 ng/dL (0.71-1.85)
== END 2024-07-20 09:24 | disposition home or self-care (01) ==
LOC: HO.HMGCLDS 09:23
PROVIDERS: PCP Nurse Practitioner Family; Visit Provider Nurse Practitioner Family
DX: I63.9 Cerebral infarction, unspecified (principal); I10 Essential (primary) hypertension; E03.9 Hypothyroidism, unspecified; E78.2 Mixed hyperlipidemia
CPT/HCPCS: 36415; 80053; 80061; 84439; 84443

== ENCOUNTER 2024-07-29 13:06 | Outpatient (AMB) | payer OTHER, SELFPAY ==
--- NOTE | 2024-07-29 13:20 | MHC.PC.OV ---
Vital Signs 07/29/24 13:24 Height 5 ft 4 in Weight 170 lb BMI 29.2 BP 110/69 Blood Pressure Location Rt brachial Position Sitting Respiration 12 Pulse 88 Pulse Source Pulse Oximeter Temp 97.6 F Temp Source Oral Pulse Oximetry (%) 99 Oxygen Delivery Method Room Air Intake Visit Reasons: min routine HLD, Hypothroid, HTN f/u labs 1 week Intake Note: Follow up to review labs and htn Documentation Specialist Required: No Allergies No Known Allergies Allergy (Verified 07/29/24 13:43) Medication List - Last Reconciled 07/29/24 by Kenyatta Branch, PREPARATION CENTER COORDINATOR- aspirin 81 mg PO DAILY escitalopram oxalate 5 mg PO DAILY fluticasone propionate 50 mcg/actuation 1 spray intranasal DAILY ketoconazole 2% 1 appl topical BID levonorgestrel (Mirena) intrauterine levothyroxine 100 mcg PO DAILY lisinopril 10 mg PO DAILY loratadine (Claritin) 10 mg PO DAILY melatonin 3 mg PO BEDTIME PRN multivitamin 1 tab PO DAILY rosuvastatin 40 mg PO DAILY Tobacco use date assessed: 07/29/24 Dental Screening Dental Screen Date: 07/29/24 Did you have a dental visit in the last 12 months?: Yes Did you have a dental problem in the last 6 months where you did not have access to dental care?: No Was dental information given to patient?: Patient has dentist HPI HPI Comments History of Present Illness Details 59 y/o F with HTN, hypothyroid, uterine fibroids, CVA (2009), LELA, perimenopause Social: getting divorce - work in progress Surgical hx: brain surgery 2009 Health Maintenance: colonoscopy 06/30/2021 + polyps repeat 5 years Mammo 2024 at [facility], reports WNL Pap 06/02/21 [facility], on wait list for updated pap DEXA will be done at [facility] soon, report requested. Vaccines: UTD on flu, COVID, Shingles, Tdap 04/2023 Specialists: IT SUPPORT SPECIALIST Optho 05/20/2023 US/US carotid duplex BI IMPRESSION: 1. RIGHT: Minimal, non-hemodynamically significant stenosis of the proximal right internal carotid artery corresponding to a 0-49% stenosis by velocity criteria. 2. LEFT: Minimal, non-hemodynamically significant stenosis of the proximal left internal carotid artery corresponding to a 0-49% stenosis by velocity criteria. Echo 06/07/23 trace tricuspid valve regurgitation. The left ventricular systolic function is normal. The calculated ejection fraction is 66% by biplane method. - No obvious valvular pathology seen on this study. Sleep study 06/27/2023 negative for sleep apnea as total sleep time AHI 4.2, however during sleep and supine position AHI 7.3, snoring 39% of the sleep time, lowest O2 sat 83%, but O2 sat below 88% for only 1 minute which is not significant. The recommendation is for weight reduction position therapy Here today to fu on chronic conditions Feels the best she has in years LELA/Mood great on escitalopram 5mg. No sx. Would like to stop. started 06/2023. Plan will be to cont for 1 year after sx resolution which we agreed was about Feb/Mar 2024 and then discuss tapering and/or coming off. HTN: well controlled on lisinopril 10mg QD w/o side effects Hypothyroid: TSH is elevated; she is taking levothyroxine appropriately. She is not having any sx. Mutually agreed to cont dose at this time and only change if she develops sx. Elevated LFTs: denies abd pain. Minimal etoh intake. Denies otc APAP/NSAID use. Will trend. Advised to seek care if develops abd pain. Is on statin. HLD: Profile at goal. On Rosuvastatin 40mg QD Was evaled by dentist - told of teeth grinding likley causing the previous tongue complaints, Will try a mouth gaurd. Not bothersome at this time ROS: Breathing is good, no chest pain No swelling in leg Denies changes in vision Nutrition and Sleep: Sleeping well with no recent use of melatonin; switched to herbal tea at bedtime. Exam awake alert scleras nonicteric bilat Thyroid nontender, trachea midline faint carotid bruit bilat 2/6 systolic murmur, LSB, RRR Abd soft, nontender LS CTAB No edema BLE Mood and affect appropriate Results: See labs below 07/2024 Discussion Notes During the visit, we discussed maintaining the current medication regimen for managing hypertension, hypothyroidism, and anxiety. I confirmed that the dosages remain appropriate, with refills provided. Collaboration was agreed concerning upcoming laboratory work to ensure comprehensive management of her health. Plan - Continue current medications including levothyroxine 100 mcg, lisinopril 10 mg, escitalopram 5 mg, daily aspirin, and rosuvastatin 40 mg. - Plan fasting lab work for lipid profile and thyroid function prior to the next physical examination. RTO CPE END OF OCT 2024 Total time spent caring for the patient today was 45 minutes. This includes time spent before the visit reviewing the chart, time spent during the visit, and time spent after the visit on documentation, reviewing laboratory results, diagnostic imaging, medications, performing a medically necessary evaluation, counseling on diagnoses, care coordination, ordering appropriate tests, ordering appropriate medications, review of tests performed by other providers, reporting test results with the patient, communication with other healthcare providers. [facility] Medical History (Updated 07/29/24 @ 17:53 by Kenyatta Branch [facility]) Fibroids High cholesterol Hypersomnolence Memory loss Stroke Surgical History (Updated 10/29/23 @ 13:08 by Caitlin Hall) History of brain surgery Social History (System 10/29/23 @ 13:08 by Caitlin Hall) Household Members: None Housing: Condominium Are you a primary critical care clinical nurse specialist to a significant other at home: No Do you presently have visiting nurse or other home services: No 75 years or older and lives alone: No Alcohol intake: current Alcohol intake frequency: a few times a week Alcohol type: wine Patient Tobacco Use Status: Never used Tobacco e-Cigarette/Vaping Use: Never Used service: No Current occupational status: employed Current occupation: [employer] Sexual orientation: Unable to collect Gender identity: Unable to collect Cognitive needs: Yes (memory sometimes) Hearing needs: No Vision needs: No Questionnaire Thrive Questionnaire Date Thrive assessed: 03/02/24 I am a: Patient What is your living situation today?: I have a steady place to live Within the past 12 months, did the food you bought not last and you didn't have the money to get more?: Never true Within the past 12 months, did you worry whether your food would run out before you got money to buy more?: Never true Do you have trouble paying for medicines?: No Do you have trouble getting transportation to medical appointments?: No Do you have trouble paying your heating and electricity bill?: No Do you have trouble taking care of your child, family member or friend?: No Do you have trouble with day-to-day activities such as bathing, preparing meals, shopping, managing finances, etc.?: No Are you currently unemployed and looking for a job?: No Are you interested in more education?: No Please select the resources that you would like help with: None Currently or been in a relationship where the following occur: No concerns reported THRIVE Score: 0 LELA-7 AMB Questionnaire LELA-7 Date LELA - 7 assessed: 03/09/24 Source: Developed by Drs. Emmanuel Estrada, Chyna Mendoza, Ramiro Zuluaga and colleagues, with an educational kerry from [employer]. Physical exam (Primary Care) Vital Signs: Last Vital Signs Temp 97.6 F 07/29/24 13:24 Pulse 88 07/29/24 13:24 Resp 12 07/29/24 13:24 BP 110/69 07/29/24 13:24 Pulse Ox 99 07/29/24 13:24 Oxygen Delivery Method Room Air 07/29/24 13:24 BMI result Body Mass Index 29.2 Tobacco/Smoking Status: Tobacco use Status Tobacco use date assessed 07/29/24 07/29/24 13:24 Patient Tobacco Use Status Never used Tobacco 07/29/24 13:20 e-Cigarette/Vaping Use Never Used 07/29/24 13:20 Thrive Assessment: Date of Thrive Assessment Date Thrive assessed 03/02/24 07/29/24 13:20 Currently or been in a relationship where the following occur: No concerns reported Results Reviewed Results Reviewed: RUN: 07/29/24 1343 PAGE 1 [facility] [address] [place] [id number] Tile Sorter: Davi Agudelo M.D. Specimen Inquiry Name: Luanne Cheung Age/Sex: 59/F : 1965 Unit#: [id number] Attend Dr: Kenyatta Branch PREPARATION CENTER COORDINATOR-BC Re07/20/24 Status: DEP [facility] Dis[facility]: SPEC : [id number] LUZ: 07/20/24-1029 STATUS: COMP REQ : [id number] RECD: 07/20/24-[address]: Kenyatta Branch [facility]- COMP: 07/20/24-1352 ENTERED: 07/20/24-[address]: ORDERED: CMP Fast, Lipid Panel, Free T4, TSH Rflx Test Result Flag Reference Sodium 140 135-145 mmol/L Potassium 4.9 3.3-5.1 mmol/L CL 108 96-108 mmol/L CO2 25 22-29 mmol/L Gap 12 12-20 BUN 13 9-16 mg/dL Creat 0.87 0.5-1.4 mg/dL eGFR > 60 Chronic Kidney Disease: Estimated GFR < 60 mL/min/1.73m2 Severe Kidney Disease: Estimated GFR < 15 mL/min/1.73m2 FBS 106 H 60-99 mg/dL A fasting glucose from 100-125 mg/dl is considered impaired (pre-diabetes). CA 9.7 8.4-10.2 mg/dL Total Bili 0.6 0.0-1.0 mg/dL AST (GOT) 54 H 5-31 U/L ALT (GPT) 57 H 0-31 U/L Protein, Total 7.3 6.5-8.0 g/dL Alb 4.8 3.5-5.0 g/dL Triglyceride 104 <150 mg/dL Desirable Triglyceride: less than 150 mg/dL Borderline High Triglyceride 150-199 mg/dL High Triglyceride: 200-499 mg/dL Very High Triglyceride: greater than or equal to 5OO mg/dL Cholesterol 153 <200 mg/dL Desirable Cholesterol: less than 200 mg/dL Borderline High Cholesterol: 200-239 mg/dL High Cholesterol: greater than 239 mg/dL LDL Calculated 88 <100 mg/dL Desirable LDL: less than 100 mg/dL Near Optimal/Above Optimal LDL: 110-129 mg/dL Borderline High LDL: 130-159 mg/dL High LDL: 160-189 mg/dL Very High LDL: greater than or equal to 190 mg/dL HDL 45 >40 mg/dL Desirable HDL: greater than 40 mg/dL Note: This HDL assay may give artificially low results in patients with liver disease. Alk Phos 54 39-117 U/L Free T4 1.02 0.71-1.85 ng/dL TSH 8.55 H 0.32-4.0 uIU/mL Coding Level of Care Code Est Pt Level 5 (65603) Complex EM visit Add On G2211 Diagnoses Acquired hypothyroidism E03.9 Hypothyroidism type: acquired Primary hypertension I10 Hypertension type: primary hypertension Cerebrovascular accident (CVA), unspecified mechanism I63.9 CVA mechanism: unspecified Mixed hyperlipidemia E78.2 Hyperlipidemia type: mixed hyperlipidemia Nonrheumatic tricuspid valve regurgitation I36.1 Cardiac valve disease etiology: nonrheumatic Bilateral carotid bruits R09.89 Laterality: bilateral LELA (generalized anxiety disorder) F41.1 Assessment & Plan Assessment & Plan (1) Hypothyroid: Code(s): E03.9 - Hypothyroidism, unspecified Category: Medical Qualifiers: Hypothyroidism type: acquired Qualified Code(s): E03.9 - Hypothyroidism, unspecified (2) Hypertension: Comment: on lisinopril 10 mg QD , BP at goal, cont. Code(s): I10 - Essential (primary) hypertension Category: Medical Qualifiers: Hypertension type: primary hypertension Qualified Code(s): I10 - Essential (primary) hypertension (3) Stroke: Comment: reports treated at [facility] in 2009. Records requested. on statin & ACEI. No deficits Code(s): I63.9 - Cerebral infarction, unspecified Category: Medical Qualifiers: CVA mechanism: unspecified Qualified Code(s): I63.9 - Cerebral infarction, unspecified (4) Hyperlipidemia: Comment: Her LDL goal will be less than 70. Code(s): E78.5 - Hyperlipidemia, unspecified Category: Medical Qualifiers: Hyperlipidemia type: mixed hyperlipidemia Qualified Code(s): E78.2 - Mixed hyperlipidemia (5) Tricuspid valve regurgitation: Comment: Trace, noted on echocardiogram 06/08/2023. No further imaging needed. Code(s): I07.1 - Rheumatic tricuspid insufficiency Category: Medical Qualifiers: Cardiac valve disease etiology: nonrheumatic Qualified Code(s): I36.1 - Nonrheumatic tricuspid (valve) insufficiency (6) Carotid artery bruit: Comment: 05/2023 IMPRESSION: 1. RIGHT: Minimal, non-hemodynamically significant stenosis of the proximal right internal carotid artery corresponding to a 0-49% stenosis by velocity criteria. 2. LEFT: Minimal, non-hemodynamically significant stenosis of the proximal left internal carotid artery corresponding to a 0-49% stenosis by velocity criteria. Optimize medical management of chronic diseases. On a statin. On an NICOLE inhibitor. On baby aspirin. Code(s): R09.89 - Other specified symptoms and signs involving the circulatory and respiratory systems Category: Medical Qualifiers: Laterality: bilateral Qualified Code(s): R09.89 - Other specified symptoms and signs involving the circulatory and respiratory systems (7) LELA (generalized anxiety disorder): Comment: started escitalopram 06/2023; plan to start 1 year remission Mar 2024. Consider tapering 02/2025 Code(s): F41.1 - Generalized anxiety disorder Category: Medical Plan . Orders: Orders Comprehensive Met. Panel 10/11/24 E03.9 - Hypothyroidism, unspecified, E78.2 - Mixed hyperlipidemia, I10 - Essential (primary) hypertension, I36.1 - Nonrheumatic tricuspid (valve) insufficiency, I63.9 - Cerebral infarction, unspecified Lipid Panel 10/11/24 E03.9 - Hypothyroidism, unspecified, E78.2 - Mixed hyperlipidemia, I10 - Essential (primary) hypertension, I36.1 - Nonrheumatic tricuspid (valve) insufficiency, I63.9 - Cerebral infarction, unspecified Vitamin D 25-OH Total 10/11/24 E03.9 - Hypothyroidism, unspecified, E78.2 - Mixed hyperlipidemia, I10 - Essential (primary) hypertension, I36.1 - Nonrheumatic tricuspid (valve) insufficiency, I63.9 - Cerebral infarction, unspecified Complete Blood Count no Diff 10/11/24 E03.9 - Hypothyroidism, unspecified, E78.2 - Mixed hyperlipidemia, I10 - Essential (primary) hypertension, I36.1 - Nonrheumatic tricuspid (valve) insufficiency, I63.9 - Cerebral infarction, unspecified Hemoglobin A1c 10/11/24 E03.9 - Hypothyroidism, unspecified, E78.2 - Mixed hyperlipidemia, I10 - Essential (primary) hypertension, I36.1 - Nonrheumatic tricuspid (valve) insufficiency, I63.9 - Cerebral infarction, unspecified Microalbumin, Random (w Creat) 10/11/24 E03.9 - Hypothyroidism, unspecified, E78.2 - Mixed hyperlipidemia, I10 - Essential (primary) hypertension, I36.1 - Nonrheumatic tricuspid (valve) insufficiency, I63.9 - Cerebral infarction, unspecified TSH reflex Free T4 10/11/24 E03.9 - Hypothyroidism, unspecified, E78.2 - Mixed hyperlipidemia, I10 - Essential (primary) hypertension, I36.1 - Nonrheumatic tricuspid (valve) insufficiency, I63.9 - Cerebral infarction, unspecified Vitamin B12 and Folate 10/11/24 E03.9 - Hypothyroidism, unspecified, E78.2 - Mixed hyperlipidemia, I10 - Essential (primary) hypertension, I36.1 - Nonrheumatic tricuspid (valve) insufficiency, I63.9 - Cerebral infarction, unspecified Medications: Refilled levothyroxine 100 mcg PO DAILY 90 tabs 1RF rosuvastatin 40 mg PO DAILY 90 tabs 1RF escitalopram oxalate 5 mg PO DAILY 90 tabs 1RF lisinopril 10 mg PO DAILY 90 tabs 1RF
[2024-07-29 13:24] VITALS: BP 110/69; PULSE 88; RESP 12; TEMP 36.4; O2SAT 99; BMI 29.2
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
== END 2024-07-29 14:09 | disposition home or self-care (01) ==
LOC: HO.HMCFM 13:06
PROVIDERS: PCP Nurse Practitioner Family; Visit Provider Nurse Practitioner Family
DX: E03.9 Hypothyroidism, unspecified (principal); I10 Essential (primary) hypertension; I63.9 Cerebral infarction, unspecified; E78.2 Mixed hyperlipidemia; I36.1 Nonrheumatic tricuspid (valve) insufficiency; R09.89 Other specified symptoms and signs involving the circulatory and respiratory systems; F41.1 Generalized anxiety disorder

== ENCOUNTER → 2024-07-29 13:06 | Outpatient (BNVA) | payer OTHER, SELFPAY | PROVIDERS: PCP Nurse Practitioner Family; Visit Provider Nurse Practitioner Family ==

== ENCOUNTER 2024-11-06 08:07 | Outpatient (REF) | payer OTHER, SELFPAY ==
[2024-11-06 10:28] LABS: Hematocrit 41.9 % (37.0-47.0); Hemoglobin 13.9 g/dl (12.0-16.0); Mean Corpuscular HGB Conc 33.2 g/dl (31.0-35.0); Mean Corpuscular Hemoglobin 30.1 pg (27.0-33.0); Mean Corpuscular Volume 90.7 fL (80.0-98.0); NRBC Abs Auto 0.000 X10*3/uL (0.0-0.012); NRBC Pct Auto 0.0 /100WBC (0.0-0.2); Platelet Count 246 X10*3/uL (160-400); Red Blood Count 4.62 X10*6/uL (4.20-5.50); White Blood Count 5.0 X10*3/uL (4.8-10.8)
[2024-11-06 10:55] LABS: Alanine Aminotransferase 39 U/L (0-31); Albumin Level 4.8 g/dL (3.5-5.0); Alkaline Phosphatase 58 U/L (39-117); Anion Gap 10 (12-20); Aspartate Amino Transferase 32 U/L (5-31); Blood Urea Nitrogen 11 mg/dL (9-16); Calcium 9.5 mg/dL (8.4-10.2); Carbon Dioxide 27 mmol/L (22-29); Chloride 105 mmol/L (96-108); Cholesterol 148 mg/dL (<200); Estimated Glomerular Filt Rate > 60; HDL Cholesterol 41 mg/dL (>40); Potassium 4.3 mmol/L (3.3-5.1); Sodium 138 mmol/L (135-145); Total Protein 7.0 g/dL (6.5-8.0); Triglycerides 79 mg/dL (<150)
[2024-11-06 10:56] LABS: Hemoglobin A1C 147.0202 umol/L; Total Hemoglobin (HGBA1C) 3644.6294 umol/L
[2024-11-06 11:41] LABS: Folate 14.7 ng/mL (> or = 4.0); Vitamin B12 751 pg/mL (200-900)
== END 2024-11-06 08:08 | disposition home or self-care (01) ==
LOC: HO.HMGCLDS 08:07
PROVIDERS: PCP Nurse Practitioner Family; Visit Provider Nurse Practitioner Family
DX: I10 Essential (primary) hypertension (principal); I36.1 Nonrheumatic tricuspid (valve) insufficiency; E78.2 Mixed hyperlipidemia; I63.9 Cerebral infarction, unspecified; E03.9 Hypothyroidism, unspecified; Z13.1 Encounter for screening for diabetes mellitus
CPT/HCPCS: 36415; 80053; 80061; 82043; 82306; 82570; 82607; 82746; 83036; 84443; 85027

== ENCOUNTER 2024-11-13 11:47 | Outpatient (AMB) | payer OTHER, SELFPAY ==
--- NOTE | 2024-11-13 12:13 | A.OFFPC_ITS ---
Vital Signs 11/13/24 12:26 Height 5 ft 4 in Weight 165 lb BMI 28.3 BP 102/68 Blood Pressure Location Rt brachial Position Sitting Respiration 12 Pulse 96 Pulse Source Pulse Oximeter Temp 97.2 F Temp Source Oral Pulse Oximetry (%) 98 Oxygen Delivery Method Room Air Intake Visit Reasons: Physical Intake Note: Physical Account Officer Required: No Allergies No Known Allergies Allergy (Verified 11/13/24 12:39) Medication List - Last Reviewed 11/13/24 by Bennie Wilkinson MA aspirin 81 mg PO DAILY escitalopram oxalate 5 mg PO DAILY fluticasone propionate 50 mcg/actuation 1 spray intranasal DAILY ketoconazole 2% 1 appl topical BID levonorgestrel (Mirena) intrauterine levothyroxine 100 mcg PO DAILY lisinopril 10 mg PO DAILY loratadine (Claritin) 10 mg PO DAILY multivitamin 1 tab PO DAILY rosuvastatin 40 mg PO DAILY Tobacco use date assessed: 07/29/24 Dental Screening Dental Screen Date: 11/13/24 Did you have a dental visit in the last 12 months?: Yes Did you have a dental problem in the last 6 months where you did not have access to dental care?: No Was dental information given to patient?: Patient has dentist HPI HPI Comments History of Present Illness Details 59 y/o F with HTN, hypothyroid, uterine fibroids, CVA (2009), LELA, perimenopause Social: Surgical hx: brain surgery 2009 Fhx: No changes 3 sisters 3 brothers, very close w/ all Health Maintenance: colonoscopy 06/30/2021 + polyps repeat 5 years Mammo 05/2024 at [facility], [facility] Pap 06/02/21 [facility], on wait list for updated pap DEXA 07/2024 baselined @ [facility]. 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 RIGHT: Minimal, non-hemodynamically s ignificant stenosis of the proximal right internal carotid artery corresponding to a 0-49% stenosis by velocity criteria. 2. LEFT: Minimal, non-hemodynamically si gnificant stenosis of the proximal left internal carotid artery corresponding to a 0-49% stenosis by velocity criteria. Echo 06/07/23 trace tricuspid valve regurgitation. The left ventricular systolic function is normal. The calculated ejection fraction is 66% by biplane method. - No obvious valvular pathology seen on this study. Sleep study 06/27/2023 negative for sleep apnea as total sleep time AHI 4.2, however during sleep and supine position AHI 7.3, snoring 39% of the sleep time, lowest O2 sat 83%, but O2 sat below 88% for only 1 minute which is not significant. The recommendation is for weight reduction position therapy Here today for CPE & Chronic dz mgmt Feels the best she has in years LELA/Mood great on escitalopram 5mg. No sx. Would like to stop. started 06/2023. Plan will be to cont for 1 year after sx resolution which we agreed was about Feb/Mar 2024 and then discuss tapering and/or coming off. HTN: well controlled on lisinopril 10mg QD w/o side effects Hypothyroid: Euthyroid on current meds. Denies sx. Elevated LFTs: Improving. + wt loss, intentional. denies abd pain. Minimal etoh intake. Denies otc APAP/NSAID use. Will trend. Advised to seek care if develops abd pain. Is on statin. HLD: Profile at goal. On Rosuvastatin 40mg QD HDL dipped a little ; stopped exercing over the summer. Has resumed walking. ROS: Breathing is good, no chest pain No swelling in leg Denies changes in vision Nutrition and Sleep: Sleeping well with no recent use of melatonin; switched to herbal tea at bedtime. 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 Mood and affect appropriate Results: See labs below 10/2024 Discussion Notes During this visit, I discussed the patient's essential hypertension, which remains stable with current medications lisinopril and bisoprolol. I addressed her hyperlipidemia with a slight increase in LDL and advised maintaining physical activity. Her hypothyroidism is controlled with levothyroxine; a refill was provided. The patient's interest in tapering off escitalopram for her depressive disorder was discussed. It will be reviewed again after one year of being asymptomatic. For her elevated blood glucose levels, which show an HbA1c increase, I advised monitoring and healthy lifestyle choices. Concerns about potential nonalcoholic fatty liver disease were alleviated by discussing the improvement of liver enzyme levels. I instructed her to return for a follow-up at six months unless otherwise needed. Plan - Continue current medications including levothyroxine 100 mcg, lisinopril 10 mg, escitalopram 5 mg, daily aspirin, and rosuvastatin 40 mg. - Plan repeat lab work for lipid profil e and thyroid function prior to the next appt in 5-6 months HTN/HLD/Thyroid/Escitalopram taper Flu shot admin RTO sooner as needed. An additional 20 minutes was spent addressing the problem(s) noted at todays visit. This includes time spent before the visit reviewing the chart, time spent during the visit, and time spent after the visit on documentation reviewing laboratory results, diagnostic imaging, medications, performing a medically necessary evaluation, counseling on diagnoses, care coordination, ordering appropriate tests, ordering appropriate medications, review of tests performed by other providers, reporting test results with the patient, communication with other healthcare providers. [facility] Medical History Fibroids High cholesterol Hypersomnolence Memory loss Stroke Surgical History History of brain surgery Social History Household Members: None Housing: Condominium Are you a primary hospice patient care secretary to a significant other at home: No Do you presently have visiting nurse or other home services: No 75 years or older and lives alone: No Alcohol intake: current Alcohol intake frequency: a few times a week Alcohol type: wine Patient Tobacco Use Status: Never used Tobacco e-Cigarette/Vaping Use: Never Used service: No Current occupational status: employed Current occupation: [employer] Sexual orientation: Unable to collect Gender identity: Unable to collect Cognitive needs: Yes (memory sometimes) Hearing needs: No Vision needs: No Questionnaire Thrive Questionnaire Date Thrive assessed: 03/02/24 I am a: Patient What is your living situation today?: I have a steady place to live Within the past 12 months, did the food you bought not last and you didn't have the money to get more?: Never true Within the past 12 months, did you worry whether your food would run out before you got money to buy more?: Never true Do you have trouble paying for medicines?: No Do you have trouble getting transportation to medical appointments?: No Do you have trouble paying your heating and electricity bill?: No Do you have trouble taking care of your child, family member or friend?: No Do you have trouble with day-to-day activities such as bathing, preparing meals, shopping, managing finances, etc.?: No Are you currently unemployed and looking for a job?: No Are you interested in more education?: No Please select the resources that you would like help with: None Currently or been in a relationship where the following occur: No concerns reported THRIVE Score: 0 LELA-7 AMB Questionnaire LELA-7 Date LELA - 7 assessed: 03/09/24 Source: Developed by Drs. Emmanuel Estrada, Chyna Mendoza, Ramiro Zuluaga and colleagues, with an educational kerry from [employer]. Physical exam (Primary Care) Vital Signs: Last Vital Signs Temp 97.2 F 11/13/24 12:26 Pulse 96 11/13/24 12:26 Resp 12 11/13/24 12:26 BP 102/68 11/13/24 12:26 Pulse Ox 98 11/13/24 12:26 Oxygen Delivery Method Room Air 11/13/24 12:26 BMI result Body Mass Index 28.3 Tobacco/Smoking Status: Tobacco use Status Tobacco use date assessed 07/29/24 11/13/24 12:14 Patient Tobacco Use Status Never used Tobacco 11/13/24 12:14 e-Cigarette/Vaping Use Never Used 11/13/24 12:14 Thrive Assessment: Date of Thrive Assessment Date Thrive assessed 03/02/24 11/13/24 12:14 Currently or been in a relationship where the following occur: No concerns reported Office Procedures Advance Care Planning Who was present: DO NOT BILL, I DID NOT DISCUSS TODAY Flu Questionnaire Does the patient have a severe egg allergy?: No Does the patient have severe life threatening allergies?: No Does the patient have a fever or illness today?: No Has the patient ever had Guillain-Augusta Syndrome?: No Has the patient ever had any past reaction to a flu shot?: No Immunizations Fluarix 1152-8608 (PF) 45 mcg (15 mcg x 3)/0.5 mL IM syringe Performing Provider: ALYSON Padilla Performing Location[place] [facility] Administered by: Bennie Wilkinson MA on 11/13/24 12:46 Dose Route Admin Location Dispensed Lot Number Expiration Date NDC Pc Support Specialist 0.5 mL IM Right Deltoid 0.5 mL [id number] 08/17/25 [id number] [employer] VIS Given Date VIS Provided VIS Publication Date 11/13/24 Single Vaccine 24 Eligibility Eligibility Date Funding Source Not [facility] Eligible 11/13/24 Private Results Reviewed Results Reviewed: Laboratory 11/06/24 Result Units Range Interpretation Provider Comments White Blood Count 5.0 X10*3/uL (4.8-10.8) Red Blood Count 4.62 X10*6/uL (4.20-5.50) Hemoglobin 13.9 g/dl (12.0-16.0) Hematocrit 41.9 % (37.0-47.0) Mean Corpuscular Volume 90.7 fL (80.0-98.0) Mean Corpuscular Hemoglobin 30.1 pg (27.0-33.0) Mean Corpuscular Hemoglobin Concent 33.2 g/dl (31.0-35.0) Red Cell Distribution Width 12.0 % (11.0-16.0) Platelet Count 246 X10*3/uL (160-400) Mean Platelet Volume 9.9 fL (9.4-12.3) Nucleated RBC Absolute Count (auto) 0.000 X10*3/uL (0.0-0.012) Nucleated Red Blood Cells % (auto) 0.0 /100WBC (0.0-0.2) Sodium Level 138 mmol/L (135-145) Potassium Level 4.3 mmol/L (3.3-5.1) Chloride Level 105 mmol/L (96-108) Carbon Dioxide Level 27 mmol/L (22-29) Anion Gap 10 (12-20) Low Blood Urea Nitrogen 11 mg/dL (9-16) Creatinine 0.75 mg/dL (0.5-1.4) Estimated Creatinine Clearance Calc Not Reportable Estimat Glomerular Filtration Rate > 60 Random Glucose 113 mg/dL (60-115) Estimated Average Glucose 120 mg/dL Hemoglobin A1c Percent 5.8 % (<6.0) Calcium Level 9.5 mg/dL (8.4-10.2) Total Bilirubin 0.4 mg/dL (0.0-1.0) Aspartate Amino Transf (AST/SGOT) 32 U/L (5-31) High Alanine Aminotransferase (ALT/SGPT) 39 U/L (0-31) High Alkaline Phosphatase 58 U/L (39-117) Total Protein 7.0 g/dL (6.5-8.0) Albumin 4.8 g/dL (3.5-5.0) Triglycerides Level 79 mg/dL (<150) Cholesterol Level 148 mg/dL (<200) LDL Cholesterol, Calculated 92 mg/dL (<100) HDL Cholesterol 41 mg/dL (>40) Vitamin B12 Level 751 pg/mL (200-900) 25-Hydroxy Vitamin D Total 66.3 ng/mL (>30) Folate 14.7 ng/mL (> or = 4.0) Thyroid Stimulating Hormone (TSH) 1.80 uIU/mL (0.32-4.0) Urine Creatinine 14.77 mg/dL Urine Microalbumin < 5.0 mg/L Urine Microalbumin/Creatinine Ratio TNP Coding Level of Care Code Est Pt Level 3 (44453) Est Pt Prev Care 40-64y(94987) Diagnoses Encounter for general adult medical examination without abnormal findings Z00.00 Cerebrovascular accident (CVA), unspecified mechanism I63.9 CVA mechanism: unspecified History of colonoscopy Z98.890 Acquired hypothyroidism E03.9 Hypothyroidism type: acquired Mixed hyperlipidemia E78.2 Hyperlipidemia type: mixed hyperlipidemia Primary hypertension I10 Hypertension type: primary hypertension LELA (generalized anxiety disorder) F41.1 Assessment & Plan Assessment & Plan (1) Encounter for general adult medical examination without abnormal findings: Onset Date: ~11/13/24 Code(s): Z00.00 - Encounter for general adult medical examination without abnormal findings Category: Medical (2) Stroke: Comment: [place] [facility] [place] Records requested. on statin & ACEI. No deficits Code(s): I63.9 - Cerebral infarction, unspecified Category: Medical Qualifiers: CVA mechanism: unspecified Qualified Code(s): I63.9 - Cerebral infarction, unspecified (3) History of colonoscopy: Onset Date: ~2021 Comment: + polyp repeat 5 years Code(s): Z98.890 - Other specified postprocedural states Category: Surgical (4) Hypothyroid: Code(s): E03.9 - Hypothyroidism, unspecified Category: Medical Qualifiers: Hypothyroidism type: acquired Qualified Code(s): E03.9 - Hypothyroidism, unspecified (5) Hyperlipidemia: Comment: Her LDL goal will be less than 70. Code(s): E78.5 - Hyperlipidemia, unspecified Category: Medical Qualifiers: Hyperlipidemia type: mixed hyperlipidemia Qualified Code(s): E78.2 - Mixed hyperlipidemia (6) Hypertension: Comment: on lisinopril 10 mg QD , BP at goal, cont. Code(s): I10 - Essential (primary) hypertension Category: Medical Qualifiers: Hypertension type: primary hypertension Qualified Code(s): I10 - Essential (primary) hypertension (7) LELA (generalized anxiety disorder): Comment: started escitalopram 06/2023; plan to start 1 year remission Mar 2024. Consider tapering 02/2025 Code(s): F41.1 - Generalized anxiety disorder Category: Medical Plan . Orders: Orders Comprehensive Met. Panel 6 Months E03.9 - Hypothyroidism, unspecified, E78.2 - Mixed hyperlipidemia, I10 - Essential (primary) hypertension TSH reflex Free T4 6 Months E03.9 - Hypothyroidism, unspecified, E78.2 - Mixed hyperlipidemia, I10 - Essential (primary) hypertension Influenza [id number] Immunization Today Z23 - Encounter for immunization Lipid Panel 6 Months E03.9 - Hypothyroidism, unspecified, E78.2 - Mixed hyperlipidemia, I10 - Essential (primary) hypertension Medications: Refilled lisinopril 10 mg PO DAILY 90 tabs 1RF levothyroxine 100 mcg PO DAILY 90 tabs 1RF rosuvastatin 40 mg PO DAILY 90 tabs 1RF Patient Instructions: Health screenings for women You should visit your health care provider from time to time, even if you are healthy. The purpose of these visits is to: Screen for medical issues Assess your risk for future medical problems Encourage a healthy lifestyle Update vaccinations and other preventive care services Help you get to know your provider in case of an illness Information Even if you feel fine, you should still see your provider for regular checkups. These visits can help you avoid problems in the future. For example, the only way to find out if you have high blood pressure is to have it checked regularly. High blood sugar and high cholesterol levels also may not have any symptoms in the early stages. A simple blood test can check for these conditions. There are specific times when you should see your provider or receive specific health screenings. The [place] Preventive Services Task Force publishes a list of recommended screenings. Below are screening guidelines for women ages 18 to 39. BLOOD PRESSURE SCREENING Your blood pressure should be checked at least once every 3 to 5 years if: Your blood pressure is in the normal range (top number less than 120 mm Hg and bottom number less than 80 mm Hg) You don't have risk factors for high blood pressure Ask your provider if you need your blood pressure checked more often if: The top number is 120 to 129 mm Hg or the bottom number is 70 to 79 mm Hg You have diabetes, heart disease, kidney problems, are overweight, or have certain other health conditions You have a first-degree relative with high blood pressure You are Black You had high blood pressure during a If the top number is 130 mm Hg or greater or the bottom number is 80 mm Hg or greater, this is considered stage 1 hypertension. Schedule an appointment with your provider to learn how you can reduce your blood pressure. Watch for blood pressure screenings in your area. Ask your provider if you can stop in to have your blood pressure checked. BREAST CANCER SCREENING Experts do not agree about the benefits of breast self-exams in finding breast cancer or saving lives. Talk to your provider about what is best for you. A screening mammogram is not recommended for most women under age 40. Your provider may discuss and recommend mammograms, MRI scans, or ultrasounds if you have an increased risk for breast cancer, such as: A mother or sister who had breast cancer at a young age (most often starting screening earlier than the age the close relative was diagnosed) You carry a high-risk genetic marker CERVICAL CANCER SCREENING Cervical cancer screening should start at age 21 years unless your provider advises otherwise. After the first test: Women ages 21 through 29 should have a Pap test every 3 years. Exoprts do not agree on whether HPV testing is recommended for this age group. Women ages 30 through 65 should be screened with either a Pap test every 3 years or the HPV test every 5 years or both tests every 5 years (called cotesting ). Women who have been treated for precancer (cervical dysplasia) should continue to have Pap tests for 20 years after treatment or until age 65, whichever is longer. If you have had your uterus and cervix removed (total hysterectomy), and you have not been diagnosed with cervical cancer or precancer (high grade cervical neoplasia), you do not need cervical cancer screening. CHOLESTEROL SCREENING Cholesterol screening should begin at: Age 45 for women with no known risk factors for coronary heart disease Age 20 for women with known risk factors for coronary heart disease Repeat cholesterol screening should take place: Every 5 years for women with normal cholesterol levels More often if changes occur in lifestyle (including weight gain and diet) More often if you have diabetes, heart disease, kidney problems, or certain other conditions DIABETES SCREENING You should be screened for diabetes starting at age 35 and then repeated every 3 years if you have no risk factors for diabetes. Screening may need to start earlier and be repeated more often if you have other risk factors for diabetes, such as: You have a first degree relative with diabetes. You are overweight or have obesity. You have high blood pressure, prediabetes, or a history of heart disease. Screening for diabetes should be done if you are planning to become and you are overweight and have other risk factors such as high blood pressure. DENTAL EXAM Go to the dentist once or twice every year for an exam and cleaning. Your dentist will evaluate if you need more frequent visits. EYE EXAM Have an eye exam every 5 to 10 years before age 40. If you have vision problems, have an eye exam every 2 years or more often if recommended by your provider. You should have an eye exam that includes an examination of your retina (back of your eye) at least every year if you have diabetes. IMMUNIZATIONS Commonly needed vaccines include: Flu shot: get one every year. COVID-19 vaccine: ask your provider what is best for you. Tetanus-diphtheria and acellular pertussis (Tdap) vaccine: have one at or after age 19 as one of your tetanus-diphtheria vaccines if you did not receive it as an adolescent. Tetanus-diphtheria: have a booster (or Tdap) every 10 years. Varicella vaccine: receive 2 doses if you never had chickenpox or the varicella vaccine. Hepatitis B vaccine: receive 2, 3, or 4 doses, depending on your exact circums tances. Measles, mumps, and rubella (MMR) vaccine: receive 1 to 2 doses if you are not already immune to MMR. Your provider can tell you if you are immune. Ask your provider about the human papillomavirus (HPV) vaccine if: You have not received the HPV vaccine in the past You have not completed the full vaccine series (you should catch up on this shot) Ask your provider if you should receive other immunizations if you have certain health problems that increase your risk for some diseases such as pneumonia. INFECTIOUS DISEASE SCREENING Women who are sexually active should be screened for chlamydia and gonorrhea up until age 25. Women 25 years and older should be screened for chlamydia and gonorrhea if at high risk. Screening for hepatitis C: All adults ages 18 to 79 should get a one-time test for hepatitis C. people should be screened at every . Screening for human immunodeficiency virus (HIV): All people ages 15 to 65 should get a one-time test for HIV. Depending on your lifestyle and medical history, you may also need to be screened for infections such as syphilis and HIV, as well as other infections. PHYSICAL EXAM All adults should visit their provider from time to time, even if they are healthy. The purpose of these visits is to: Screen for disease Assess your risk of future medical problems Encourage a healthy lifestyle Update your vaccinations and other preventive care services Maintain a relationship with a provider in case of an illness Your height, weight, and BMI should be checked at every exam. During your exam, your provider may ask you about: Depression and anxiety Diet and exercise Alcohol and tobacco use Safety issues, such as using seat belts, smoke detectors, and intimate partner violence Your medicines and risk for interactions SKIN SELF-EXAM Your provider may check your skin for signs of skin cancer, especially if you're at high risk, such as if you: Have had skin cancer before Have close relatives with skin cancer Have a weakened immune system OTHER SCREENING Talk with your provider about colon cancer screening if you have a strong family history of colon cancer or polyps, or if you have had inflammatory bowel disease or polyps yourself. Routine bone density screening of women under 40 is not recommended.
[2024-11-13 12:26] VITALS: BP 102/68; PULSE 96; RESP 12; TEMP 36.2; O2SAT 98; BMI 28.3
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
== END 2024-11-13 13:01 | disposition home or self-care (01) ==
LOC: HO.HMCFM 11:48
PROVIDERS: PCP Nurse Practitioner Family; Visit Provider Nurse Practitioner Family
DX: Z00.00 Encounter for general adult medical examination without abnormal findings (principal); I63.9 Cerebral infarction, unspecified; Z98.890 Other specified postprocedural states; E03.9 Hypothyroidism, unspecified; E78.2 Mixed hyperlipidemia; I10 Essential (primary) hypertension; F41.1 Generalized anxiety disorder; Z23 Encounter for immunization

== ENCOUNTER → 2024-11-13 11:47 | Outpatient (BNVA) | payer OTHER, SELFPAY | PROVIDERS: PCP Nurse Practitioner Family; Visit Provider Nurse Practitioner Family | DX: Z00.00 Encounter for general adult medical examination without abnormal findings (principal); I10 Essential (primary) hypertension; E03.9 Hypothyroidism, unspecified; E78.5 Hyperlipidemia, unspecified; R79.89 Other specified abnormal findings of blood chemistry; E78.2 Mixed hyperlipidemia; F41.1 Generalized anxiety disorder; Z23 Encounter for immunization; Z86.73 Personal history of transient ischemic attack (TIA), and cerebral infarction without residual deficits; Z98.890 Other specified postprocedural states | CPT/HCPCS: 90471; 90656 ==